=== PATIENT | female | born 1970 | race Caucasian/White ===

== ENCOUNTER 2016-04-20 10:13 | Emergency (ER) | payer MEDICAID, OTHER ==
[~2016-04-20] VITALS: Wt 63.0 kg
[~2016-04-20 10:13] MED LIST: ADVIL PRN; TYLENOL PRN
--- NOTE | 2016-04-20 11:06 | RADRPT ---
PROCEDURE: XR Chest. CLINICAL INDICATION: Chest pain TECHNIQUE: Chest AP portable. COMPARISON: 01/15/2016 FINDINGS: Right internal jugular Port-A-Cath. The mediastinal structures are unremarkable. The heart is normal in size and configuration. The pu lmonary vascularity is normal. There are RLL and LLL patchy consolidation/subsegmental atelectasis. There are moderate sized bilateral pleural effusions. The axial skeleton is unremarkable. IMPRESSION: RLL and LLL patchy consolidation/subsegmental atelectasis Moderate size bilateral pleural effusions RPTAT: HGDB .Marquise Mckay MD, MD Date Time Electronically viewed and signed by .Marquise Mckay MD, on 04/20/2016 11:06 .B/
[2016-04-20 11:10] LABS: BASOPHILS % 0.6 % (0.0-2.0); EOSINOPHILS # 0.1 10^3/ul (0.0-0.5); EOSINOPHILS % 1.3 % (0.0-7.0); HEMOGLOBIN 11.4 g/dl (12.0-16.0); LYMPHOCYTES # 0.8 10^3/ul (0.8-2.9); LYMPHOCYTES % 11.9 % (15.0-51.0); MEAN CORPUSCULAR HEMOGLOBIN 26.5 pg (29.0-33.0); MEAN CORPUSCULAR HGB CONC 32.5 g/dl (32.0-37.0); MEAN CORPUSCULAR VOLUME 81.5 fl (82.0-101.0); MONOCYTE # 0.7 10^3/ul (0.3-0.9); MONOCYTES % 10.2 % (0.0-11.0); NEUTROPHIL # 5.4 10^3/ul (1.6-7.5); PLATELET COUNT 416 10^3/UL (140-440); RED BLOOD COUNT 4.29 10^6/ul (4.20-5.40); RED CELL DISTRIBUTION WIDTH 19.1 % (11.5-14.5); UNCORRECTED WBC 7.1 10^3/ul (4.8-10.8); WHITE BLOOD COUNT 7.1 10^3/ul (4.8-10.8)
[2016-04-20 11:11] LABS: INR 0.96; PROTIME 12.8 Sec (12.2-14.2)
[2016-04-20 11:12] LABS: PARTIAL THROMBOPLASTIN TIME 33.2 Sec (25.0-35.0)
[2016-04-20 11:14] LABS: CONDITION 1; LH ANALYZER COMMENTS 1
[2016-04-20] MEDS ORDERED: AMIT50TA3 PO (11:18)
[2016-04-20 11:21] LABS: CHLORIDE 105 mmol/L (97-110); POTASSIUM 3.4 mmol/L (3.5-5.1); SODIUM 142 mmol/L (135-144)
[2016-04-20 11:24] LABS: ANION GAP 11 (8-16); BLOOD UREA NITROGEN 8 mg/dl (7-20); CARBON DIOXIDE 29 mmol/L (21-31); CREATININE 0.48 mg/dl (0.44-1.00)
[2016-04-20 11:25] LABS: CALCIUM 8.5 mg/dl (8.4-10.2); GLUCOSE 90 mg/dl (70-220)
[2016-04-20] MEDS ORDERED: CEFTRIAXONE 1 GM/50 ML (PMX) 50 ML IVPB STA (11:30)
[2016-04-20] MEDS ORDERED: AZITHROMYCIN 500MG/NS (PMX) 250 ML IV STA (11:30)
[2016-04-20 11:34] LABS: B-TYPE NATRIURETIC PEPTIDE 61 PG/ML (0-125)
[2016-04-20 11:40] LABS: TROPONIN-I < 0.012 ng/ml (0.00-0.12)
--- NOTE | 2016-04-20 12:24 | ERD ---
ER Documentation Chief Complaint Date/Time DATE: 04/20/16 TIME: 12:21 Chief Complaint SOB FOR 1 WEEK WITH HX OF PLEURAL EFFUSION, BREAST CA WITH CHEMO HPI This is a 45-year-old female who presents to the emergency room for evaluation of shortness of breath. The patient states that she has been short of breath for 1 week. She states is worse when she lays flat, she does have a history of breast cancer and is on chemotherapy. The patient denies any palpitations at this time or fevers and came to the ER for evaluation. She does have a history of pleural effusions. ROS All systems reviewed and are negative except as per history of present illness. Medications Home Meds Reported Medications Amitriptyline Hcl* (Amitriptyline Hcl*) 50 Mg Tablet, 50 MG PO QHS, #30 TAB 04/20/16 Discontinued Reported Medications [Advil Prn] No Conflict Check 01/15/16 [Tylenol Prn] No Conflict Check 01/15/16 Allergies Allergies: Coded Allergies: No Known Allergies (Verified Allergy, Unknown, 01/15/16) PMhx/Soc History of Surgery: Yes (LT BREAST,MADHU CATH PLACEMENT) Anesthesia Reaction: No Hx Neurological Disorder: No Hx Respiratory Disorders: No Hx Cardiac Disorders: No Hx Psychiatric Problems: No Hx Miscellaneous Medical Probl: Yes (LT BREAST CA) Hx Alcohol Use: No Hx Substance Use: No Hx Tobacco Use: No Smoking Status: Never smoker Physical Exam Vitals Vital Signs Date Time Temp Pulse Resp B/P Pulse Ox O2 Delivery O2 Flow Rate FiO2 04/20/16 10:50 Nasal Cannula 2 04/20/16 10:15 98.5 80 21 144/70 98 Physical Exam INITIAL VITAL SIGNS: Reviewed by me GENERAL: The patient is well developed and appropriate for usual state of health in no apparent distress HEENT: Pupils equal, round, and reactive to light. EOMI. There is no scleral icterus. NECK: C-spine is soft and supple, there is no meningismus. There is no cervical lymphadenopathy. LUNGS: Clear to auscultation bilaterally. There are no rales, wheezes or rhonchi. HEART: Regular rate and rhythm, no murmurs, clicks, rubs or gallops. ABDOMEN: Soft, non-tender, non-distended. There are bowel sounds in all four quadrants. No rebound or guarding. EXTREMITIES: There is no peripheral cyanosis or edema. No focal swelling or erythema. NEUROLOGICAL: The patient moves all four extremities with 5/5 strength. Cranial nerves II - XII are intact. Normal gait. Alert and oriented SKIN: There is no apparent rash or petechiae. HEME/LYMPHATIC: There is no evidence of excessive bruising or lymphedema. PSYCHIATRIC: The patient does not appear anxious or depressed. Result Diagram: 04/20/16 1050 04/20/16 1055 Results 24 hrs Laboratory Tests Test 04/20/16 10:50 04/20/16 10:55 04/20/16 11:30 Activated Partial Thromboplast Time 33.2Sec Basophils # 0.010^3/ul Basophils % 0.6% Blood Morphology Comment Eosinophils # 0.110^3/ul Eosinophils % 1.3% Hematocrit 35.0% Hemoglobin 11.4g/dl INR International Normalized Ratio 0.96 Lymphocytes # 0.810^3/ul Lymphocytes % 11.9% Mean Corpuscular Hemoglobin 26.5pg Mean Corpuscular Hemoglobin Concent 32.5g/dl Mean Corpuscular Volume 81.5fl Mean Platelet Volume 7.0fl Monocytes # 0.710^3/ul Monocytes % 10.2% Neutrophils # 5.410^3/ul Neutrophils % 76.0% Nucleated Red Blood Cells # 0.010^3/ul Nucleated Red Blood Cells % 0.0/100WBC Platelet Count 62047^3/UL Prothrombin Time 12.8Sec Prothrombin Time Ratio 1.0 Red Blood Count 4.2910^6/ul Red Cell Distribution Width 19.1% White Blood Count 7.110^3/ul Anion Gap 11 B-Type Natriuretic Peptide 61PG/ML Blood Urea Nitrogen 8mg/dl Calcium Level 8.5mg/dl Carbon Dioxide Level 29mmol/L Chloride Level 105mmol/L Creatinine 0.48mg/dl Glucose Level 90mg/dl Potassium Level 3.4mmol/L Sodium Level 142mmol/L Troponin I < 0.012ng/ml Lactic Acid Level 0.7mmol/L Current Medications Medications (Trade) Dose Ordered Sig/Marck Route PRN Reason Start Time Stop Time Status Last Admin Dose Admin Azithromycin 250 ml @ 250 mls/hr ONCE STAT IV 04/20/16 11:30 04/20/16 12:29 04/20/16 11:58 Ceftriaxone Sodium (Rocephin) 50 ml @ 100 mls/hr ONCE STAT IVPB 04/20/16 11:30 04/20/16 11:59 DC 04/20/16 11:54 Procedures/MDM Chest X-ray 1V Interpreted by me: Soft Tissue: Bilateral patchy infiltrations, moderate bilateral pleural effusions Bones: No acute abnormalities Mediastinum/Cardiac Silhouette/Lungs: [No acute abnormalities] EKG: Rate/Rhythm: [Normal Sinus Rhythm] QRS, ST, T-waves: [No changes consistent w/ acute ischemia] Impression: [No evidence of ischemia or arrhythmia] This 45-year-old female presents to the ER for evaluation of shortness of breath. The patient does have a history of breast cancer and previous pleural effusion. On today's chest x-ray there are new bilateral patchy infiltrates and moderate pleural effusion. I do feel that this patient is suffering from a superimposed pneumonia on top of her chronic pleural effusions. She has not hypoxic, not tachycardic, hemodynamically stable. She did have lab work drawn which was normal, and she is not neutropenic. This patient did have blood cultures and lactic acid drawn. She was given Rocephin and azithromycin here in the emergency room and will be discharged home with a prescription for Levaquin. I advised her to return to the ER for shortness of breath worsens and she verbalized understanding. Pulse ox 100% on room air at this time Departure Diagnosis: Primary Impression: Bilateral pneumonia Additional Impressions: Microcytic anemia Bilateral pleural effusion Condition: Stable TIM VARGAS DO Apr 20, 2016 12:24
[2016-04-20] MEDS ORDERED: LEVO750T25 PO (12:26)
[2016-04-20 13:22] VITALS: BP 123/78; PULSE 78; RESP 20
== END 2016-04-20 13:26 | disposition home or self-care (01) ==
LOC: E/R 10:13
DX: J18.9 Pneumonia, unspecified organism (principal); R40.2252 Coma scale, best verbal response, oriented, at arrival to emergency department; D50.9 Iron deficiency anemia, unspecified; J90 Pleural effusion, not elsewhere classified; R40.2362 Coma scale, best motor response, obeys commands, at arrival to emergency department; R40.2142 Coma scale, eyes open, spontaneous, at arrival to emergency department; Z85.3 Personal history of malignant neoplasm of breast
CPT/HCPCS: 71010; 80048; 83605; 83880; 84484; 85025; 85610; 85730; 87040; J0456; J0696; 36415; 93005; 96374; 96375

== ENCOUNTER 2016-05-09 18:39 | Inpatient (IN) | payer OTHER ==
[~2016-05-09] VITALS: Ht 154.9 cm; Wt 62.0 kg
[~2016-05-09 18:39] MED LIST changes: -ADVIL PRN; +AMIT50TA3 PO; +LEVO750T25 PO; -TYLENOL PRN
[2016-05-09] MEDS ORDERED: SOD CHLORIDE 0.9% 500 ML IV STA (23:08)
[2016-05-09] MEDS ORDERED: LEVALBUTEROL (NEB) 1.25 MG/0.5 ML AMP INH STA (23:08)
[2016-05-09] MEDS ORDERED: IPRATROPIUM (NEB) 0.5 MG/2.5 ML AMP NEB STA (23:08)
--- NOTE | 2016-05-09 23:26 | ERD ---
ER Documentation Chief Complaint Date/Time DATE: 05/09/16 TIME: 23:13 Chief Complaint WORSENING COUGH FOR 3 WEEKS AND SOB HPI 45-year-old female presents here in emergency department for complaints of cough for 3 weeks now. Patient has been having on and off shortness of breath and wheezing. Patient was seen here 2 weeks ago, was diagnosed bilateral pneumonia, was sent home with Levaquin, patient finished a dose of antibiotics, but continues to have the symptoms and now worse. Patient has been having fever. Patient has been having evidence of shortness of breath. Patient just finished chemotherapy 03/30/2016 for breast cancer. ROS All systems reviewed and are negative except as per history of present illness. Medications Home Meds Active Scripts Levofloxacin* (Levaquin*) 750 Mg Tablet, 750 MG PO DAILY for 7 Days, TAB Prov:TIM VARGAS DO 04/20/16 Reported Medications Amitriptyline Hcl* (Amitriptyline Hcl*) 50 Mg Tablet, 50 MG PO QHS, #30 TAB 04/20/16 Allergies Allergies: Coded Allergies: No Known Allergies (Verified Allergy, Unknown, 01/15/16) PMhx/Soc History of Surgery: Yes (LT BREAST,MADHU CATH PLACEMENT) Anesthesia Reaction: No Hx Neurological Disorder: No Hx Respiratory Disorders: No Hx Cardiac Disorders: No Hx Psychiatric Problems: No Hx Miscellaneous Medical Probl: Yes (LT BREAST CA) Hx Alcohol Use: No Hx Substance Use: No Hx Tobacco Use: No FmHx Family History: diabetes Physical Exam Vitals Vital Signs Date Time Temp Pulse Resp B/P Pulse Ox O2 Delivery O2 Flow Rate FiO2 05/10/16 02:07 91 20 97 Nasal Cannula 2.0 05/10/16 00:39 103 28 94 21 05/09/16 18:57 100.7 109 20 128/79 92 Physical Exam GENERAL: The patient is well developed and appropriate for usual state of health, in no apparent distress. CHEST: Tightness noted on auscultation bilaterally. Slight wheezing noted with crackles noted in bilateral lungs. HEART: Regular rate and rhythm. No murmurs, clicks, rubs or gallops. No S3 or S4. ABDOMEN: Soft, nontender and nondistended. Good bowel sounds. No rebound or guarding. No gross peritonitis. No gross organomegaly or masses. No Mckinney sign or McBurney point tenderness. BACK: No midline or flank tenderness. EXTREMITIES: Equal pulses bilaterally. There is no peripheral clubbing, cyanosis or edema. No focal swelling or erythema. Full range of motion. Grossly neurovascularly intact. NEURO: Alert and oriented. Cranial nerves 2-12 intact. Motor strength in all 4 extremities with 5/5 strength. Sensation grossly intact. Normal speech and gait. SKIN: There is no apparent rash or petechia. The skin is warm and dry. HEMATOLOGIC AND LYMPHATIC: There is no evidence of excessive bruising or lymphedema. No gross cervical, axillary, or inguinal lymphadenopathy. Result Diagram: 05/10/16 0005 05/10/16 0005 Results 24 hrs Laboratory Tests Test 05/10/16 00:05 Alanine Aminotransferase (ALT/SGPT) 43IU/L Albumin 4.0g/dl Albumin/Globulin Ratio 1.29 Alkaline Phosphatase 161IU/L Anion Gap 15 Aspartate Amino Transf (AST/SGOT) 59IU/L Basophils # 0.010^3/ul Basophils % 0.3% Blood Morphology Comment Blood Urea Nitrogen 8mg/dl Calcium Level 8.8mg/dl Carbon Dioxide Level 28mmol/L Chloride Level 100mmol/L Creatinine 0.49mg/dl Direct Bilirubin 0.00mg/dl Eosinophils # 0.610^3/ul Eosinophils % 13.5% Globulin 3.10g/dl Glucose Level 101mg/dl Hematocrit 38.1% Hemoglobin 12.7g/dl Indirect Bilirubin 0.0mg/dl Lactic Acid Level 0.6mmol/L Lymphocytes # 0.610^3/ul Lymphocytes % 11.7% Mean Corpuscular Hemoglobin 27.4pg Mean Corpuscular Hemoglobin Concent 33.2g/dl Mean Corpuscular Volume 82.4fl Mean Platelet Volume 9.1fl Monocytes # 0.510^3/ul Monocytes % 10.3% Neutrophils # 3.010^3/ul Neutrophils % 64.2% Nucleated Red Blood Cells # 0.010^3/ul Nucleated Red Blood Cells % 0.0/100WBC Platelet Count 4410^3/UL Potassium Level 3.6mmol/L Red Blood Count 4.6310^6/ul Red Cell Distribution Width 19.0% Sodium Level 139mmol/L Total Bilirubin 0.0mg/dl Total Protein 7.1g/dl Troponin I < 0.012ng/ml White Blood Count 4.710^3/ul Current Medications Medications (Trade) Dose Ordered Sig/Marck Route PRN Reason Start Time Stop Time Status Last Admin Dose Admin Sodium Chloride (NS) 500 ml @ 500 mls/hr Q1H STAT IV 05/09/16 23:08 05/10/16 00:07 DC 05/09/16 23:08 Ipratropium Bricelyn (Atrovent 0.02% (Neb)) 0.5 mg ONCE STAT NEB 05/09/16 23:08 05/09/16 23:11 DC 05/10/16 00:35 Levalbuterol (Xopenex Neb) 5 mg ONCE STAT INH 05/09/16 23:08 05/09/16 23:11 DC 05/10/16 00:34 Acetaminophen (Tylenol Tab) 650 mg ONCE ONCE PO 05/09/16 23:30 05/09/16 23:31 DC 05/10/16 00:28 Ibuprofen (Motrin) 400 mg ONCE ONCE PO 05/09/16 23:30 05/09/16 23:31 DC 05/10/16 00:28 Ipratropium Bricelyn (Atrovent 0.02% (Neb)) 0.5 mg ONCE STAT NEB 05/10/16 01:51 05/10/16 01:52 DC 05/10/16 02:03 Levalbuterol (Xopenex Neb) 2.5 mg ONCE STAT INH 05/10/16 01:51 05/10/16 01:52 DC 05/10/16 02:01 Patient was given medicines for fever control here in the emergency department. After treatment, patient temperature improved and lower. Patient appears well and is hemodynamically stable. Breathing treatment of Xopenex and Atrovent was given here in emergency department, after treatment, patient's lungs sounds are clear and patient's oxygenation is better. Patient verbalized feeling much better.Normal saline IV bolus was given here in emergency department for rehydration, patient tolerated IV fluids. EKG was done, read by me and is normal sinus rhythm at a rate of 95, normal axis , there is no ST changes or changes in the EKG that indicates any cardiac emergencies at this time. Patient's EKG was also reviewed by Dr. Simental. Impression: no acute findings on EKG PROCEDURE: CHEST - 1 VIEW CLINICAL INDICATION: 45-year-old female with shortness of breath and asthma exacerbation. TECHNIQUE: A single frontal AP semi-erect view of the chest was performed portably. The images were reviewed on a PACS workstation. COMPARISON: Chest x-ray April 20, 2016. FINDINGS: There is a right-sided chest port again identified with the tip of the catheter in the distal superior vena cava. The cardiomediastinal silhouette is indistinct but without significant interval change. There is [id number] right and moderate left pleural effusions with associated compressive atelectasis. There is no evidence for congestive heart failure. There is no evidence for pneumothorax. Surgical clips are seen within the left axillary region from prior lymph node dissection. The osseous structures are intact. IMPRESSION: 1. Right-sided chest port. 2. Wbjk-[id number] right and moderate left pleural effusions with associated compressive atelectasis. A superimposed infiltrate cannot be excluded. 3. Surgical clips within the left axillary region from prior lymph node dissection. .Kenny Guadarrama MD, MD Date Time Electronically viewed and signed by .Kenny Guadarrama MD, MD on 05/10/2016 01:34 .M/ CC: MADDI KHANNA BOILER TESTER I discussed this case with my attending physician, Dr. Simental, patient will be transferred to ER 1 for further management and treatment, possible admission since patient failed outpatient treatment for pneumonia. Patient is able this time, will be transferred to ER 1, Dr. Simental will take over care. Procedures/MDM Medical Decision Making: Considering patient has been having symptoms of cough for 3 weeks, initially had diagnosed with pneumonia, this time, chest x-ray shows pleural effusion that cannot exclude infiltrates, patient has been having fever was tachycardic, also up AT 92% which improved to 94% upon being here in after breathing treatment, patient will be transferred to ER 1 for further evaluation and treatment, possible admission, I discussed this case with my attending physician, Dr. Simental, will take over care and facilitate patient's treatment and management. At this time, patient was transferred to ER 1 for further evaluation and treatment. Departure Diagnosis: Primary Impression: Cough Additional Impression: Pleural effusion Condition: Fair MADDI KHANNA NP May 09, 2016 23:25
[2016-05-09] MEDS ORDERED: ACETAMINOPHEN 325 MG TAB PO ONE (23:30)
[2016-05-09] MEDS ORDERED: IBUPROFEN 200 MG TAB PO ONE (23:30)
[2016-05-10 00:56] LABS: BASOPHILS % 0.3 % (0.0-2.0); EOSINOPHILS # 0.6 10^3/ul (0.0-0.5); EOSINOPHILS % 13.5 % (0.0-7.0); HEMATOCRIT 38.1 % (37.0-47.0); HEMOGLOBIN 12.7 g/dl (12.0-16.0); LYMPHOCYTES # 0.6 10^3/ul (0.8-2.9); LYMPHOCYTES % 11.7 % (15.0-51.0); MEAN CORPUSCULAR HEMOGLOBIN 27.4 pg (29.0-33.0); MEAN CORPUSCULAR HGB CONC 33.2 g/dl (32.0-37.0); MEAN CORPUSCULAR VOLUME 82.4 fl (82.0-101.0); MEAN PLATELET VOLUME 9.1 fl (7.4-10.4); MONOCYTE # 0.5 10^3/ul (0.3-0.9); MONOCYTES % 10.3 % (0.0-11.0); NEUTROPHILS % 64.2 % (39.0-77.0); PLATELET COUNT 44 10^3/UL (140-440); RED BLOOD COUNT 4.63 10^6/ul (4.20-5.40); UNCORRECTED WBC 4.7 10^3/ul (4.8-10.8); WHITE BLOOD COUNT 4.7 10^3/ul (4.8-10.8)
[2016-05-10 00:57] LABS: CONDITION 1; LH ANALYZER COMMENTS 1
[2016-05-10 01:09] LABS: CHLORIDE 100 mmol/L (97-110)
[2016-05-10 01:10] LABS: POTASSIUM 3.6 mmol/L (3.5-5.1); SODIUM 139 mmol/L (135-144)
[2016-05-10 01:12] LABS: ALANINE AMINOTRANSFERASE 43 IU/L (13-69); ALBUMIN/GLOBULIN RATIO 1.29; ALKALINE PHOSPHATASE 161 IU/L (42-121); ANION GAP 15 (8-16); ASPARTATE AMINO TRANSFERASE 59 IU/L (15-46); BLOOD UREA NITROGEN 8 mg/dl (7-20); CARBON DIOXIDE 28 mmol/L (21-31); CREATININE 0.49 mg/dl (0.44-1.00); TOTAL PROTEIN 7.1 g/dl (6.1-8.1)
[2016-05-10 01:13] LABS: CALCIUM 8.8 mg/dl (8.4-10.2); GLUCOSE 101 mg/dl (70-220)
[2016-05-10 01:25] LABS: TROPONIN-I < 0.012 ng/ml (0.00-0.12)
--- NOTE | 2016-05-10 01:34 | RADRPT ---
PROCEDURE: CHEST - 1 VIEW CLINICAL INDICATION: 45-year-old female with shortness of breath and asthma exacerbation. TECHNIQUE: A single frontal AP semi-erect view of the chest was performed portably. The images we re reviewed on a PACS workstation. COMPARISON: Chest x-ray April 20, 2016. FINDINGS: There is a right-sided chest port again identified with the tip of the catheter in the distal superi or vena cava. The cardiomediastinal silhouette is indistinct but without significant interval kan e. There is ypev-[id number] right and moderate left pleural effusions with associated compressive atelectasis. There is no evidence for congestive heart failure. There is no evidence for pneumothora x. Surgical clips are seen within the left axillary region from prior lymph node dissection. The os seous structures are intact. IMPRESSION: 1. Right-sided chest port. 2. Tzdb-hl-[id number] right and moderate left pleural effusions with associated compressive atelectas is. A superimposed infiltrate cannot be excluded. 3. Surgical clips within the left axillary region from prior lymph node dissection. .Kenny Guadarrama MD, MD Date Time Electronically viewed and signed by .Kenny Guadarrama MD, on 05/10/2016 01:34 .M/
[2016-05-10] MEDS ORDERED: LEVALBUTEROL (NEB) 1.25 MG/0.5 ML AMP INH STA (01:51)
[2016-05-10] MEDS ORDERED: IPRATROPIUM (NEB) 0.5 MG/2.5 ML AMP NEB STA (01:51)
[2016-05-10] MEDS ORDERED: morphine 4 MG/ML VIAL IV STA (02:59)
[2016-05-10] MEDS ORDERED: ONDANSETRON 4 MG INJ IV STA (02:59)
[2016-05-10] MEDS ORDERED: LORAZEPAM 2 MG INJ IV PRN (07:30)
[2016-05-10] MEDS ORDERED: LEVALBUTEROL (NEB) 0.63 MG/3 ML AMP HHN PRN (07:30)
[2016-05-10] MEDS ORDERED: ACETAMINOPHEN 325 MG TAB PO PRN (07:30)
[2016-05-10] MEDS ORDERED: VANCOMYCIN IV PER PHARMACY XX SCH (07:30)
--- NOTE | 2016-05-10 08:52 | HP ---
DATE OF ADMISSION: 05/09/2016 TIME SEEN: 4 a.m. CHIEF COMPLAINT: Shortness of breath and cough. HISTORY OF PRESENT ILLNESS: The patient is a 45-year-old female with a history of left breast carci noma status post radical mastectomy here in 2013 as well as history of chest wall abscess who presen hong to the emergency department with shortness of breath and cough. The symptoms have been going on for about 3 weeks and have been progressively getting worse. The patient was diagnosed with pneumo ermias about 3 weeks ago here in the ER and was discharged with antibiotics, but it seems like her symp toms have persisted and as such, she is here for evaluation. She reported subjective fever. Denied any nausea, vomiting, chest pain. It seems like the patient has completed her chemo on last month. Also of note, the patient underwent thoracentesis here about 4 months ago with removal of almost 1 .4 liters of serous fluid which was discarded. When patient presented to the ER today, her blood pressure was 120/79, heart rate 109, respiratory r ate 20, temp 100.7, oxygen saturation 92% on room air. Laboratory value shows a WBC of 4.7, platele t count 44. Hemoglobin was 4.7. AST 59, alkaline phosphatase 161. Otherwise, CBC and CMP are with in normal limits. Chest x-ray shows mild to moderate right and moderate left pleural effusion with associated compressive atelectasis. A superimposed infiltrate cannot be excluded. A chest x-ray 3 weeks ago here in the ER showed right lower lobe and left lower lobe patchy consolidation/subsegment al atelectasis with moderate-sized bilateral pleural effusion. REVIEW OF SYSTEMS: A 12-point review was performed and is negative except as mentioned in the HPI. PAST MEDICAL HISTORY: Left breast mastectomy, Port-A-Cath placement. SOCIAL HISTORY: Denied a history of tobacco, alcohol, or illicit drug use. ALLERGIES: NO KNOWN DRUG ALLERGIES. HOME MEDICATIONS: 1. Amitriptyline. 2. Recently started Levaquin. PHYSICAL EXAMINATION: VITAL SIGNS: Blood pressure 106/63 heart rate 99, respiratory rate 20, temperature 99, oxygen satur ation 100% on 3 L. GENERAL: No acute distress, cooperative. HEENT: No obvious head deformity. Pupils reactive to light. Extraocular muscles intact. CARDIOVASCULAR: Tachycardic with regular rhythm. CHEST: There are decreased breath sounds in bilateral lungs with scattered wheezing. There is a ri ght-sided Port-A-Cath in place. ABDOMEN: Soft, nontender, nondistended. Positive bowel sounds. EXTREMITIES: No edema. NEUROLOGIC: No focal deficits. LABORATORY: Pertinent positive results as mentioned in the HPI. IMAGING: Chest x-ray results as mentioned in the HPI. IMPRESSION: 1. Bilateral pneumonia. 2. Bilateral pleural effusion, infectious versus malignant. 3. Sepsis as evidenced by tachycardia and fever, secondary to pneumonia. 4. History of left breast cancer status post radical mastectomy and chemo. 5. Leukopenia and thrombocytopenia, likely chemo-induced. PLAN: She will be placed on broad-spectrum antibiotic. Will order ultrasound-guided thoracentesis. Note that the patient has a history of thoracentesis with removal of almost 1.4 liters and serous fluid 4 months ago. She will be placed on oxygen and will provide bronchodilators as needed for sym ptomatic relief. We will provide pain medication as needed. We will follow up on the culture resul ts. Will also follow up her platelets closely and transfuse as needed. Currently, there is no sign of active bleeding. Further workup and management per clinical course. Dictated By: DANIEL SINGLETON/NANO Conf#: [id number] DID#: [id number]
[2016-05-10] MEDS ORDERED: CEFEPIME 1GM/50 ML (PMX) 50 ML IVPB SCH (09:00)
[2016-05-10 09:27] LABS: BASOPHILS % 0.9 % (0.0-2.0); EOSINOPHILS # 0.2 10^3/ul (0.0-0.5); EOSINOPHILS % 5.5 % (0.0-7.0); HEMATOCRIT 35.3 % (37.0-47.0); HEMOGLOBIN 11.7 g/dl (12.0-16.0); LYMPHOCYTES # 0.4 10^3/ul (0.8-2.9); LYMPHOCYTES % 14.5 % (15.0-51.0); MEAN CORPUSCULAR HEMOGLOBIN 27.3 pg (29.0-33.0); MEAN CORPUSCULAR HGB CONC 33.1 g/dl (32.0-37.0); MEAN CORPUSCULAR VOLUME 82.5 fl (82.0-101.0); MEAN PLATELET VOLUME 9.5 fl (7.4-10.4); MONOCYTE # 0.3 10^3/ul (0.3-0.9); MONOCYTES % 12.3 % (0.0-11.0); NEUTROPHIL # 1.8 10^3/ul (1.6-7.5); NEUTROPHILS % 66.8 % (39.0-77.0); PLATELET COUNT 33 10^3/UL (140-440); RED BLOOD COUNT 4.28 10^6/ul (4.20-5.40); RED CELL DISTRIBUTION WIDTH 18.7 % (11.5-14.5); UNCORRECTED WBC 2.7 10^3/ul (4.8-10.8); WHITE BLOOD COUNT 2.7 10^3/ul (4.8-10.8)
[2016-05-10 09:29] LABS: ALBUMIN 3.3 g/dl (3.3-4.9)
[2016-05-10 09:30] LABS: POTASSIUM 3.5 mmol/L (3.5-5.1)
[2016-05-10 09:31] LABS: CREATININE 0.44 mg/dl (0.44-1.00)
[2016-05-10 09:32] LABS: ALBUMIN/GLOBULIN RATIO 1.37; CALCIUM 8.1 mg/dl (8.4-10.2); MAGNESIUM 1.9 mg/dl (1.7-2.5); TOTAL PROTEIN 5.7 g/dl (6.1-8.1)
[2016-05-10 09:34] LABS: CONDITION 1; LH ANALYZER COMMENTS 1
[2016-05-10] MEDS: VANCOMYCIN 1.25 GM in SOD CHLORIDE 0.9% 250 ML IVPB SCH ×2 (09:56→22:32)
[2016-05-10 10:31] LABS: PLATELET ESTIMATE PLT APPEAR DECREASED
[2016-05-10 12:00] VITALS: TEMP 98
--- NOTE | 2016-05-10 16:28 | PN ---
Date/Time of Note Date/Time of Note DATE: 05/10/16 TIME: 16:23 Assessment/Plan VTE Prophylaxis VTE Prophylaxis Intervention: SCD's Assessment/Plan Chief Complaint/Hosp Course Assessment and plan 1. Bilateral pneumonia. continue on abx. [place] follow. 2. Bilateral pleural effusion. Plan for thoracentesis. [place] follow. Suspect etiology malignant versus infectious. We'll follow-up 3. Sepsis secondary to #1. Afebrile at present. Continue antibiotics and antipyretics as needed 4. History of left breast cancer status post radical mastectomy and chemotherapy. Patient does report he follows up with oncologist Dr. Camacho as outpatient and is currently on chemotherapy. Patient be followed up as outpatient 5. Leukopenia and thrombycytopenia likely chemotherapy-induced. Stable at present we'll monitor Disposition and plan: Plan for thoracentesis. Await clinical improvement of respiratory status. Cook Pie follow. Discussed but of care with Dr. Pro Problems: Subjective 24 Hr Interval Summary Free Text/Dictation No reported chest pain at this time. Has some shortness of breath Exam/Review of Systems Vital Signs Vitals Vital Signs Date Time Temp Pulse Resp B/P Pulse Ox O2 Delivery O2 Flow Rate FiO2 05/10/16 09:00 74 100/59 100 Nasal Cannula 2.0 05/10/16 08:00 98.2 18 05/10/16 00:39 21 Exam General: [Reports of shortness of breath Eyes: pupils equal round, Anicteric sclera Neck: Supple nontender, no JVD Cardiac: S1, S2 auscultated, regular rhythm and rate Pulmonary: Diminished at lung bases GI: Abdomen soft nontender nondistended, bowel sounds active Extremities: No edema bilateral lower extremities Skin: Clean dry and intact Neurologic: Alert to person place and time and situation Results Result Diagram: 05/10/16 0850 05/10/16 0850 Results 24 hrs Laboratory Tests Test 05/10/16 00:05 05/10/16 08:50 Alanine Aminotransferase (ALT/SGPT) 43 43 Albumin 4.0 3.3 Albumin/Globulin Ratio 1.29 1.37 Alkaline Phosphatase 161 H 129 H Anion Gap 15 15 Aspartate Amino Transf (AST/SGOT) 59 H 38 Basophils # 0.0 0.0 Basophils % 0.3 0.9 Blood Morphology Comment Blood Urea Nitrogen 8 8 Calcium Level 8.8 8.1 L Carbon Dioxide Level 28 26 Chloride Level 100 103 Creatinine 0.49 0.44 Direct Bilirubin 0.00 0.00 Eosinophils # 0.6 H 0.2 Eosinophils % 13.5 H 5.5 Globulin 3.10 2.40 Glucose Level 101 94 Hematocrit 38.1 35.3 L Hemoglobin 12.7 11.7 L Indirect Bilirubin 0.0 0.0 Lactic Acid Level 0.6 Lymphocytes # 0.6 L 0.4 L Lymphocytes % 11.7 L 14.5 L Mean Corpuscular Hemoglobin 27.4 L 27.3 L Mean Corpuscular Hemoglobin Concent 33.2 33.1 Mean Corpuscular Volume 82.4 82.5 Mean Platelet Volume 9.1 # 9.5 Monocytes # 0.5 0.3 Monocytes % 10.3 12.3 H Neutrophils # 3.0 1.8 Neutrophils % 64.2 66.8 Nucleated Red Blood Cells # 0.0 0.0 Nucleated Red Blood Cells % 0.0 0.0 Platelet Count 44 #L 33 #L Potassium Level 3.6 3.5 Red Blood Count 4.63 4.28 Red Cell Distribution Width 19.0 H 18.7 H Sodium Level 139 140 Total Bilirubin 0.0 L 0.0 L Total Protein 7.1 5.7 #L Troponin I < 0.012 White Blood Count 4.7 #L 2.7 #L Differential Comment AUTO w/SCAN Magnesium Level 1.9 Platelet Estimate PLT APPEAR DECREASED Medications Medications Current Medications Lorazepam (Ativan) 0.5 mg Q6H PRN IV ANXIETY; Start 05/10/16 at 07:30 Ondansetron HCl (Zofran Inj) 4 mg Q6H PRN IV NAUSEA AND/OR VOMITING; Start at 07:30 Acetaminophen (Tylenol Tab) 650 mg Q6H PRN PO PAIN LEVEL 1-3 OR FEVER; Start at 07:30 Morphine Sulfate 2 mg 2 mg Q4H PRN IV PAIN LEVEL 7-10; Start 05/10/16 at 07:30 Cefepime HCl (Maxipime 1gm/50 ml (Pmx)) 50 ml @ 100 mls/hr Q12 IVPB Last administered on 05/10/16t 09:00; Admin Dose 100 MLS/HR; Start 05/10/16 at 09:00 Amitriptyline HCl 50 mg 50 mg QHS PO ; Start 05/10/16 at 21:00 Vancomycin HCl/ Sodium Chloride (Vancocin/NS) 250 ml @ 83.333 mls/ hr Q12H IVPB Last administered on 05/10/16t 09:56; Admin Dose 83.333 MLS/HR; Start at 09:00 AUTUMN VARELA May 10, 2016 16:28
[2016-05-10 17:20] VITALS: PULSE 102
[2016-05-10] MEDS: morphine 2 MG INJ IV PRN (18:05)
[2016-05-10 18:24] VITALS: Ht 154.9 cm; Wt 62.0 kg
[2016-05-10 20:00] VITALS: BP 145/73; RESP 17
[2016-05-10 20:18] VITALS: PULSE 105
[2016-05-10] MEDS ORDERED: AMITRIPTYLINE 50 MG TAB PO SCH (21:00)
[2016-05-10] MEDS: AMITRIPTYLINE 25 MG TAB PO SCH (22:32)
[2016-05-10] MEDS: NACL 0.9% 3 ML SYG IV SCH (23:13)
[2016-05-11] VITALS (12 sets, daily range): BP systolic 102–127; BP diastolic 57–78; PULSE 73–109; RESP 17
[2016-05-11 07:25] LABS: BASOPHILS % 0.2 % (0.0-2.0); EOSINOPHILS # 0.2 10^3/ul (0.0-0.5); HEMATOCRIT 34.7 % (37.0-47.0); HEMOGLOBIN 11.6 g/dl (12.0-16.0); LYMPHOCYTES # 0.5 10^3/ul (0.8-2.9); LYMPHOCYTES % 13.4 % (15.0-51.0); MEAN CORPUSCULAR HEMOGLOBIN 27.6 pg (29.0-33.0); MEAN CORPUSCULAR HGB CONC 33.4 g/dl (32.0-37.0); MEAN CORPUSCULAR VOLUME 82.6 fl (82.0-101.0); MEAN PLATELET VOLUME 8.3 fl (7.4-10.4); MONOCYTE # 0.4 10^3/ul (0.3-0.9); MONOCYTES % 9.7 % (0.0-11.0); NEUTROPHIL # 2.6 10^3/ul (1.6-7.5); NEUTROPHILS % 70.7 % (39.0-77.0); PLATELET COUNT 50 10^3/UL (140-440); UNCORRECTED WBC 3.7 10^3/ul (4.8-10.8); WHITE BLOOD COUNT 3.7 10^3/ul (4.8-10.8)
[2016-05-11 07:30] LABS: CONDITION 1; LH ANALYZER COMMENTS 1
[2016-05-11 07:39] LABS: INR 1.06; PROTIME 13.8 Sec (12.2-14.2); PT RATIO 1.1
[2016-05-11 07:40] LABS: POTASSIUM 3.5 mmol/L (3.5-5.1)
[2016-05-11 07:42] LABS: CREATININE 0.45 mg/dl (0.44-1.00)
[2016-05-11 07:43] LABS: CALCIUM 7.9 mg/dl (8.4-10.2); MAGNESIUM 1.8 mg/dl (1.7-2.5); PHOSPHORUS 3.4 mg/dl (2.5-4.9)
[2016-05-11] MEDS: VANCOMYCIN 1.25 GM in SOD CHLORIDE 0.9% 250 ML IVPB SCH ×2 (10:57→20:47)
[2016-05-11] MEDS: morphine 2 MG INJ IV PRN (10:58)
--- NOTE | 2016-05-11 11:52 | HP ---
DATE OF ADMISSION: 05/10/2016 SUBJECTIVE: The patient remains stable this morning. No evidence of respiratory distress . Thank you, Dr. Ugalde, for this consultation. This is a 45-year-old lady with history of breast cancer with history of mastectomy, complicated by a breast wall abscess, presents with 3-week history of i ncreasing cough, congestion. Denies any fever or chills, was diagnosed with pneumonia 3 weeks ago a nd treated with outpatient antibiotics. On admission today she was febrile to 100.7. No leukocytosi s. Chest x-ray did show moderate left pleural effusion. She has a history of pleural effusion requ iring thoracentesis performed here in December of last year where she had 1.37 liters removed from th e left pleural space. PAST MEDICAL HISTORY: 1. Metastatic advanced breast cancer. 2. History of mastectomy. 3. Ongoing chemotherapy. MEDICATIONS: Include amitriptyline. ALLERGIES: NONE. SOCIAL HISTORY: Nonsmoker, no alcohol, no history of drug use. FAMILY HISTORY: Noncontributory. REVIEW OF SYSTEMS: A 12 point review of systems negative other than that mentioned above. PHYSICAL EXAMINATION: GENERAL: Elderly-appearing lady, appears comfortable at rest, no acute distress. VITAL SIGNS: Temperature 98, pulse is 85, blood pressure 102/57, O2 saturation 96% on 2 L nasal can nula. NECK: Supple. No JVD or lymphadenopathy. CARDIAC: S1, S2, no added sounds or murmurs. CHEST: Diminished air entry bilaterally. ABDOMEN: Soft, nontender. No guarding or rebound. EXTREMITIES: No cyanosis, clubbing, or edema. NEUROLOGIC: Generalized weakness, but no focal deficits. LABORATORY DATA: White count 3.7, hemoglobin 11.6, platelets of 50. BUN 6, creatinine 0.45. INR w as 1.06. IMPRESSION AND PLAN: 1. Pleural effusions, likely secondary to metastatic breast cancer. 2. Hypoxemic respiratory failure secondary to above. The patient will require: 1. Thoracentesis of left pleural effusion with pleural fluid studies. 2. If increasing frequency of thoracentesis patient may ultimately require a pleurocentesis and/or PleurX catheter. Dictated By: VANESSA SUE/NANO Conf#: [id number] DID#: [id number]
[2016-05-11] MEDS ORDERED: LIDOCAINE 1% (MPF) 5 ML VIAL ONE (12:57)
--- NOTE | 2016-05-11 13:03 | RADRPT ---
PROCEDURE: US guided left thoracentesis. CLINICAL INDICATION: Shortness of breath. Left pleural effusion. TECHNIQUE: Prior to the procedure, informed consent was obtained. The risks, benefits, and alternatives were e xplained to the patient or the patient's family, including but not limited to bleeding, infection, p ain, visceral or vascular damage, shock, pneumothorax, chest tube placement, air embolism, and . The patient or the patient's family understood the risks and the alternatives and wished to proce ed with the study. Informed written consent was obtained. A procedural pause was performed. The patient's name, date of , and procedure to be performed were verified. Ultrasound of the left hemithorax was performed in the axial and sagittal planes. A left pleural eff usion is noted. Utilizing ultrasound guidance, optimal location for entry to the pleural cavity was ascertained. The overlying skin was prepped and draped in the usual sterile fashion. Approximately 10 ml of 1% Xylocaine was injected locally for pain control. Using ultrasound guidance, a 5-[place] Yueh catheter was introduced into the left pleural space without difficulty. Fluid was aspirated. COMPARISON: None. FINDINGS: Initial ultrasound demonstrates fluid in the left pleural space. Approximately 1.3 liters of serous fluid was aspirated and sent to the laboratory. IMPRESSION: 1. Satisfactory ultrasound-guided left thoracentesis. RPTAT: QQ .Marcus Adan MD, MD Date Time Electronically viewed and signed by .Marcus Adan MD, on 05/11/2016 13:02 .R/
--- NOTE | 2016-05-11 13:29 | RADRPT ---
AMENDMENT: 05/11/2016 1:39:18 PM Sg Maddox M.D Results were discussed with the patients nurse Marily Limb 05/11/2016 1:33:48 PM . PROCEDURE: XR Chest. CLINICAL INDICATION: Pleural effusion status post left thoracentesis. TECHNIQUE: Single AP portable chest COMPARISON: 05/09/2016 FINDINGS: Cardiomegaly and vascular congestion. Stable right MediPort catheter in place. Persistent large rig ht pleural effusion. Decreased left pleural effusion status post thoracentesis. Approximately 10% left lower lobe pneumothorax with persistent trace left pleural effusion. This may represent trappe d lung. . The osseous structures and soft tissues are unremarkable. IMPRESSION: 1. Approximately .10% left lower lobe pneumothorax status post thoracentesis. This may represent tr apped lung. Continued follow-up is recommended. 2. Persistent large right pleural effusion, cardiomegaly and vascular congestion. RPTAT:AAJJ Physician Jameson Date Time Electronically viewed and signed by Physician Jameson on 05/11/2016 13:40 SHERI/
[2016-05-11 14:28] LABS: FLUID APPEARANCE CLEAR; FLUID TYPE THORACENTHESIS; FLUID WBC'S 240 /cmm
[2016-05-11 14:29] LABS: FLUID LYMPHOCYTES 72 %; FLUID MONOCYTES 25 %; FLUID NEUTROPHILS 3 %
--- NOTE | 2016-05-11 15:52 | PN ---
Date/Time of Note Date/Time of Note DATE: 05/11/16 TIME: 15:50 Assessment/Plan VTE Prophylaxis VTE Prophylaxis Intervention: SCD's Lines/Catheters IV [facility] Type (from [facility]): Peripheral IV Assessment/Plan Chief Complaint/Hosp Course Assessment and plan 1. Bilateral pneumonia. continue on abx. Sales Facilitator follow. 2. biLateral pleural effusion. Status post thoracentesis. Sales Facilitator follow. Suspect etiology malignant versus infectious. Follow-up pleural fluid cytology 3. Sepsis secondary to #1. Afebrile at present. Continue antibiotics and antipyretics as needed 4. History of left breast cancer status post radical mastectomy and chemotherapy. Patient does report he follows up with oncologist Dr. Camacho as outpatient and is currently on chemotherapy. Patient to be followed up as outpatient 5. Leukopenia and thrombycytopenia likely chemotherapy-induced. Stable at present we'll monitor Disposition and plan: Patient status post thoracentesis. Follow-up with pulmonology recommendations per follow-up on fluid cytology. Discharge him medically stable and cleared by consultants Discussed but of care with Dr. Pro Problems: Subjective 24 Hr Interval Summary Free Text/Dictation No apparent distress. Exam/Review of Systems Vital Signs Vitals Vital Signs Date Time Temp Pulse Resp B/P Pulse Ox O2 Delivery O2 Flow Rate FiO2 05/11/16 13:11 2.0 05/11/16 12:23 86 05/11/16 12:04 97.9 17 127/63 97 05/11/16 07:45 Nasal Cannula 05/10/16 00:39 21 Intake and Output 05/10/16 05/10/16 05/11/16 14:59 22:59 06:59 Intake Total 700 ml Balance 700 ml Exam General: [Reports of shortness of breath Eyes: pupils equal round, Anicteric sclera Neck: Supple nontender, no JVD Cardiac: S1, S2 auscultated, regular rhythm and rate Pulmonary: Diminished at lung bases GI: Abdomen soft nontender nondistended, bowel sounds active Extremities: No edema bilateral lower extremities Skin: Clean dry and intact Neurologic: Alert to person place and time and situation Results Result Diagram: 05/11/16 0602 05/11/16 0602 Results 24 hrs Laboratory Tests Test 05/11/16 06:02 05/11/16 12:40 Anion Gap 15 Basophils # 0.0 Basophils % 0.2 Blood Morphology Comment Blood Urea Nitrogen 6 L Calcium Level 7.9 L Carbon Dioxide Level 25 Chloride Level 101 Creatinine 0.45 Eosinophils # 0.2 Eosinophils % 6.0 Glucose Level 84 Hematocrit 34.7 L Hemoglobin 11.6 L INR International Normalized Ratio 1.06 Lymphocytes # 0.5 L Lymphocytes % 13.4 L Magnesium Level 1.8 Mean Corpuscular Hemoglobin 27.6 L Mean Corpuscular Hemoglobin Concent 33.4 Mean Corpuscular Volume 82.6 Mean Platelet Volume 8.3 Monocytes # 0.4 Monocytes % 9.7 Neutrophils # 2.6 Neutrophils % 70.7 Nucleated Red Blood Cells # 0.0 Nucleated Red Blood Cells % 0.0 Phosphorus Level 3.4 Platelet Count 50 #L Potassium Level 3.5 Prothrombin Time 13.8 Prothrombin Time Ratio 1.1 Red Blood Count 4.20 Red Cell Distribution Width 19.0 H Sodium Level 137 White Blood Count 3.7 #L Body Fluid Appearance CLEAR Body Fluid Color YELLOW Body Fluid Lymphocytes (%) 72 Body Fluid Monocytes % 25 Body Fluid Neutrophils % 3 Body Fluid RBC Body Fluid Type THORACENTHESIS Body Fluid Volume 800.0 Body Fluid WBC 240 Medications Medications Current Medications Lorazepam (Ativan) 0.5 mg Q6H PRN IV ANXIETY; Start 05/10/16 at 07:30 Ondansetron HCl (Zofran Inj) 4 mg Q6H PRN IV NAUSEA AND/OR VOMITING; Start at 07:30 Acetaminophen (Tylenol Tab) 650 mg Q6H PRN PO PAIN LEVEL 1-3 OR FEVER; Start at 07:30 Morphine Sulfate 2 mg 2 mg Q4H PRN IV PAIN LEVEL 7-10 Last administered on 05/11 10:58; Admin Dose 2 MG; Start 05/10/16 at 07:30 Cefepime HCl 50 ml @ 100 mls/hr Q12 IVPB Last administered on 05/10/16 09:00 ; Admin Dose 100 MLS/HR; Start 05/10/16 at 09:00; Status Future Hold Vancomycin HCl/ Sodium Chloride (Vancocin/NS) 250 ml @ 83.333 mls/ hr Q12H IVPB Last administered on 05/11/16 10:57; Admin Dose 83.333 MLS/HR; Start at 09:00 Amitriptyline HCl (Elavil) 50 mg QHS PO Last administered on 05/10/16t 22:32; Admin Dose 50 MG; Start 05/10/16 at 21:00 AUTUMN VARELA May 11, 2016 15:52
[2016-05-11 16:58] LABS: FLUID GLUCOSE 103 mg/dl; FLUID LD 251 U/L; FLUID TOTAL PROTEIN 4.7 g/dl; FLUID TYPE THORACENTESIS FLUID
[2016-05-11] MEDS: AMITRIPTYLINE 25 MG TAB PO SCH (20:47)
[2016-05-12] VITALS (12 sets, daily range): BP systolic 98–114; BP diastolic 55–75; PULSE 75–92; RESP 13–18
--- NOTE | 2016-05-12 09:06 | RADRPT ---
PROCEDURE: XR Chest. CLINICAL INDICATION: Pneumonia, CHF TECHNIQUE: An AP view of the chest was obtained. COMPARISON: Chest x-ray dated 05/11/2016 FINDINGS: There is a right chest Port-A-Cath with tip in the mid SVC. There is prominence of the central pulmonary vascular markings with moderate right and small left pl eural effusions. Is a persistent small left inferolateral pneumothorax. The cardiomediastinal jerry houette is the normal limits for size. The osseous structures are unremarkable. IMPRESSION: 1. Stable, small left inferolateral pneumothorax. 2. Findings suggestive of pulmonary vascular congestion with moderate right and small left pleural effusions. No significant interval change. RPTAT: HH .Dacia Garay MD, MD Date Time Electronically viewed and signed by .Dacia Garay MD, MD on 05/12/2016 09:06 .G/
[2016-05-12] MEDS: morphine 2 MG INJ IV PRN (09:22)
[2016-05-12] MEDS: ONDANSETRON 4 MG INJ IV PRN (09:22)
[2016-05-12] MEDS: VANCOMYCIN 1.25 GM in SOD CHLORIDE 0.9% 250 ML IVPB SCH ×3 (09:22→20:57)
--- NOTE | 2016-05-12 12:13 | PN ---
DATE: SUBJECTIVE: The patient is stable this morning, sitting up in bed in no acute distress. PHYSICAL EXAMINATION: VITAL SIGNS: Temperature 98, pulse 70, blood pressure 106/55, O2 saturation 96% on FIO2 of 2 L nasa l cannula. NECK: Supple. No JVD or lymphadenopathy. CARDIAC: S1, S2, no added sounds or murmurs. CHEST: Diminished air entry bilaterally. ABDOMEN: Soft, nontender. No guarding or rebound. EXTREMITIES: No cyanosis, clubbing, edema. NEUROLOGIC: Grossly intact. No focal deficits. LABORATORY DATA: Pleural fluid showed exudative effusion with a total protein of 4.7. Cytology is pending at time of this dictation. IMAGING: Post thoracentesis, chest x-ray shows small inferolateral pneumothorax. IMPRESSION AND PLAN: 1. Metastatic breast cancer. 2. Recurrent pleural effusion concerning for malignancy. 3. Status post thoracentesis, left lung with residual pneumothorax. Patient will require: 1. Continued supplemental O2. 2. Serial chest x-rays to ensure resolution of pneumothorax. Once this has been resolved, consider discharge planning and oncology recommendations. Dictated By: VANESSA SUE/NANO Conf#: [id number] DID#: [id number]
[2016-05-12] MEDS: FUROSEMIDE 40 MG INJ IV SCH ×2 (12:55→17:55)
--- NOTE | 2016-05-12 14:42 | PN ---
Date/Time of Note Date/Time of Note DATE: 05/12/16 TIME: 14:37 Assessment/Plan VTE Prophylaxis VTE Prophylaxis Intervention: SCD's Lines/Catheters IV [facility] Type ([facility]): Peripheral IV Assessment/Plan Chief Complaint/Hosp Course Assessment and plan 1. Bilateral pneumonia. continue on abx. Patient Centered Care Specialist follow. 2. BiLateral pleural effusion. Status post thoracentesis. Patient Centered Care Specialist follow. Suspect etiology malignant versus infectious. Follow-up pleural fluid cytology 3. Sepsis secondary to #1. Afebrile at present. Continue antibiotics and antipyretics as needed 4. History of left breast cancer status post radical mastectomy and chemotherapy. Patient does report she follows up with oncologist Dr. Camacho as outpatient and is currently on chemotherapy. Patient to be followed up as outpatient 5. Leukopenia and thrombycytopenia likely chemotherapy-induced. Stable at present we'll monitor Disposition and plan: Check follow up chest radiograph. Monitor for reaccumulation of fluid. cont diuretics. Monitor for resolution of pneumothorax. d/c when cleared by consultants Discussed but of care with Dr. Marcum Problems: Subjective 24 Hr Interval Summary Free Text/Dictation Does report little better breathing at this time Exam/Review of Systems Vital Signs Vitals Vital Signs Date Time Temp Pulse Resp B/P Pulse Ox O2 Delivery O2 Flow Rate FiO2 05/12/16 12:34 98.1 62 14 101/58 96 05/12/16 09:45 Nasal Cannula 2.0 05/10/16 00:39 21 Intake and Output 05/11/16 05/11/16 05/12/16 15:00 23:00 07:00 Intake Total 700 ml 200 ml Balance 700 ml 200 ml Exam General: Comfortable at this time. No apparent distress Eyes: pupils equal round, Anicteric sclera Neck: Supple nontender, no JVD Cardiac: S1, S2 auscultated, regular rhythm and rate Pulmonary: No obvious wheezing or rhonchi GI: Abdomen soft nontender nondistended, bowel sounds active Extremities: No edema bilateral lower extremities Skin: Clean dry and intact Neurologic: Alert to person place and time and situation Results Result Diagram: 05/11/16 0602 05/11/16 0602 Results 24 hrs Laboratory Tests Test 05/12/16 08:17 Vancomycin Level Trough 14.7 Medications Medications Current Medications Lorazepam (Ativan) 0.5 mg Q6H PRN IV ANXIETY; Start 05/10/16 at 07:30 Ondansetron HCl (Zofran Inj) 4 mg Q6H PRN IV NAUSEA AND/OR VOMITING Last administered on 05/12/16 09:22; Admin Dose 4 MG; Start 05/10/16 at 07:30 Acetaminophen (Tylenol Tab) 650 mg Q6H PRN PO PAIN LEVEL 1-3 OR FEVER; Start at 07:30 Morphine Sulfate 2 mg 2 mg Q4H PRN IV PAIN LEVEL 7-10 Last administered on 05/12 09:22; Admin Dose 2 MG; Start 05/10/16 at 07:30 Cefepime HCl 50 ml @ 100 mls/hr Q12 IVPB Last administered on 05/10/16 09:00 ; Admin Dose 100 MLS/HR; Start 05/10/16 at 09:00; Status Future Hold Vancomycin HCl/ Sodium Chloride (Vancocin/NS) 250 ml @ 83.333 mls/ hr Q12H IVPB Last administered on 05/12/16 09:34; Admin Dose 83.333 MLS/HR; Start at 09:00 Amitriptyline HCl (Elavil) 50 mg QHS PO Last administered on 05/11/16 20:47; Admin Dose 50 MG; Start 05/10/16 at 21:00 AUTUMN VARELA May 12, 2016 14:42
[2016-05-12] MEDS: AMITRIPTYLINE 25 MG TAB PO SCH (20:57)
[2016-05-13] VITALS (13 sets, daily range): BP systolic 102–129; BP diastolic 55–76; PULSE 72–110; RESP 15–20
[2016-05-13] MEDS: FUROSEMIDE 40 MG INJ IV SCH ×2 (06:08→17:50)
[2016-05-13 08:03] LABS: POTASSIUM 3.1 mmol/L (3.5-5.1)
[2016-05-13 08:05] LABS: CREATININE 0.46 mg/dl (0.44-1.00)
[2016-05-13 08:06] LABS: CALCIUM 7.7 mg/dl (8.4-10.2); MAGNESIUM 1.8 mg/dl (1.7-2.5); PHOSPHORUS 3.8 mg/dl (2.5-4.9)
[2016-05-13 08:08] LABS: BASOPHILS % 0.5 % (0.0-2.0); EOSINOPHILS # 0.5 10^3/ul (0.0-0.5); EOSINOPHILS % 10.7 % (0.0-7.0); HEMATOCRIT 36.8 % (37.0-47.0); HEMOGLOBIN 12.3 g/dl (12.0-16.0); LYMPHOCYTES # 0.9 10^3/ul (0.8-2.9); LYMPHOCYTES % 19.9 % (15.0-51.0); MEAN CORPUSCULAR HEMOGLOBIN 27.4 pg (29.0-33.0); MEAN CORPUSCULAR HGB CONC 33.5 g/dl (32.0-37.0); MEAN CORPUSCULAR VOLUME 81.9 fl (82.0-101.0); MEAN PLATELET VOLUME 8.7 fl (7.4-10.4); MONOCYTE # 0.5 10^3/ul (0.3-0.9); MONOCYTES % 10.6 % (0.0-11.0); NEUTROPHIL # 2.6 10^3/ul (1.6-7.5); NEUTROPHILS % 58.3 % (39.0-77.0); PLATELET COUNT 105 10^3/UL (140-440); RED BLOOD COUNT 4.49 10^6/ul (4.20-5.40); RED CELL DISTRIBUTION WIDTH 18.9 % (11.5-14.5); UNCORRECTED WBC 4.5 10^3/ul (4.8-10.8); WHITE BLOOD COUNT 4.5 10^3/ul (4.8-10.8)
[2016-05-13 08:23] LABS: CONDITION 1; LH ANALYZER COMMENTS 1
--- NOTE | 2016-05-13 08:32 | RADRPT ---
PROCEDURE: XR Chest. CLINICAL INDICATION: Pneumonia/cough/congestive heart failure TECHNIQUE: Chest AP portable. COMPARISON: 03/11/2017 FINDINGS: Right internal jugular Port-A-Cath. The mediastinal structures are unremarkable. The heart is normal in size and configuration. The pu lmonary vascularity is normal. There is a RLL and LLL patchy consolidation/subsegmental atelectasis . There are small bilateral pleural effusions. There is no change in the small left inferior later al pneumothorax. The axial skeleton is unremarkable. IMPRESSION: RLL and LLL patchy consolidation/subsegmental atelectasis Small bilateral pleural effusions No change in small left inferior lateral pneumothorax RPTAT: HGDB .Marquise Mckay MD, MD Date Time Electronically viewed and signed by .Marquise Mckay MD, on 05/13/2016 08:32 .B/
[2016-05-13] MEDS: VANCOMYCIN 1.25 GM in SOD CHLORIDE 0.9% 250 ML IVPB SCH (09:46)
--- NOTE | 2016-05-13 12:00 | CONS ---
Date/Time of Note Date/Time of Note DATE: 05/13/16 TIME: 11:55 Assessment/Plan Assessment/Plan Additional Assessment/Plan Chest x-ray was reviewed from today which is showing bilateral pleural effusions. However significantly improved after undergoing left-sided thoracentesis. Assessment and recommendations; 1. patient admitted with recurrent pleural effusions. Status post left thoracentesis. This is her third thoracentesis the first 1 was in September of last year and in January and now. 2. Metastatic breast cancer. 3. Findings are unlikely from pneumonia. Patient currently undergoing chemotherapy. May need to have VATS procedure done with chemical pleurodesis, provided that pleural fluid cytology is negative for malignancy and there is not any significant pleural involvement from malignancy. Patient will need to have a CT scan of chest done without contrast. Consider stopping antibiotics. Consultation Date/Type/Reason Admit Date/Time May 10, 2016 at 02:56 Initial Consult Date Type of Consultation: Pulmonary 24 HR Interval Summary Free Text/Dictation Patient condition is stable. Shortness of breath is significantly improved after undergoing left sided thoracentesis. Complains of scant cough without any sputum production. Denies any chest pain, nausea, vomiting. General examination; young woman currently in no distress awake and alert. Exam/Review of Systems Vital Signs Vitals Vital Signs Date Time Temp Pulse Resp B/P Pulse Ox O2 Delivery O2 Flow Rate FiO2 05/13/16 11:51 98.0 81 17 102/55 98 05/13/16 09:25 Nasal Cannula 3.0 05/10/16 00:39 21 Intake and Output 05/12/16 05/12/16 05/13/16 15:00 23:00 07:00 Intake Total 1040 ml 100 ml Output Total 0 ml Balance 1040 ml 100 ml Exam HEENT examination; supple neck, no JVD. No lymphadenopathy. Pharynx is clear. Good dentition. No neck masses. Chest examination; diminished breath on lung bases bilaterally. Upper lobes are clear. S1-S2 audible, no murmurs regular rhythm. Abdomen examination; soft, nontender nondistended no organomegaly bowel sounds audible . Extremities; no peripheral edema. CLINICAL EVALUATOR examination; no focal deficit. Results Result Diagram: 05/13/16 0645 05/13/16 0645 Results 24 hrs Laboratory Tests Test 05/13/16 06:45 Anion Gap 13 Basophils # 0.0 Basophils % 0.5 Blood Morphology Comment Blood Urea Nitrogen 6 L Calcium Level 7.7 L Carbon Dioxide Level 30 Chloride Level 98 Creatinine 0.46 Eosinophils # 0.5 Eosinophils % 10.7 H Glucose Level 95 Hematocrit 36.8 L Hemoglobin 12.3 Lymphocytes # 0.9 Lymphocytes % 19.9 Magnesium Level 1.8 Mean Corpuscular Hemoglobin 27.4 L Mean Corpuscular Hemoglobin Concent 33.5 Mean Corpuscular Volume 81.9 L Mean Platelet Volume 8.7 Monocytes # 0.5 Monocytes % 10.6 Neutrophils # 2.6 Neutrophils % 58.3 Nucleated Red Blood Cells # 0.0 Nucleated Red Blood Cells % 0.0 Phosphorus Level 3.8 Platelet Count 105 #L Potassium Level 3.1 L Red Blood Count 4.49 Red Cell Distribution Width 18.9 H Sodium Level 138 White Blood Count 4.5 #L Medications Medications Current Medications Lorazepam (Ativan) 0.5 mg Q6H PRN IV ANXIETY; Start 05/10/16 at 07:30 Ondansetron HCl (Zofran Inj) 4 mg Q6H PRN IV NAUSEA AND/OR VOMITING Last administered on 05/12/16 09:22; Admin Dose 4 MG; Start 05/10/16 at 07:30 Acetaminophen (Tylenol Tab) 650 mg Q6H PRN PO PAIN LEVEL 1-3 OR FEVER; Start at 07:30 Morphine Sulfate 2 mg 2 mg Q4H PRN IV PAIN LEVEL 7-10 Last administered on 05/12 09:22; Admin Dose 2 MG; Start 05/10/16 at 07:30 Cefepime HCl 50 ml @ 100 mls/hr Q12 IVPB Last administered on 05/10/16 09:00 ; Admin Dose 100 MLS/HR; Start 05/10/16 at 09:00; Status Future Hold Vancomycin HCl/ Sodium Chloride (Vancocin/NS) 250 ml @ 83.333 mls/ hr Q12H IVPB Last administered on 05/13/16 09:46; Admin Dose 83.333 MLS/HR; Start at 09:00 Amitriptyline HCl (Elavil) 50 mg QHS PO Last administered on 05/12/16 20:57; Admin Dose 50 MG; Start 05/10/16 at 21:00 LEI HORTA 17, 2017 12:00
--- NOTE | 2016-05-13 16:18 | PN ---
Date/Time of Note Date/Time of Note DATE: 05/13/16 TIME: 16:16 Assessment/Plan VTE Prophylaxis VTE Prophylaxis Intervention: SCD's Lines/Catheters IV Catheter Type (from [facility] [place]): [place] Assessment/Plan Chief Complaint/Hosp Course Assessment and plan 1. suspect Bilateral pneumonia. improved. off abx 2. Bilateral pleural effusion. s/p thoracentesis. Sliver Machine Operator follow. plan for CT chest 3. Sepsis secondary to #1. Afebrile at present. Continue antibiotics and antipyretics as needed 4. History of left breast cancer status post radical mastectomy and chemotherapy. Patient does report he follows up with oncologist Dr. Camacho as outpatient and is currently on chemotherapy. Patient be followed up as outpatient 5. Leukopenia and thrombycytopenia likely chemotherapy-induced. Stable at present we'll monitor Disposition and plan: plan for CT chest follow up with pulmonary recs. d/c when medically stable and cleared by consultants Discussed but of care with Dr. Pro Problems: Subjective 24 Hr Interval Summary Free Text/Dictation better breathing at this time. no s/s of distress Exam/Review of Systems Vital Signs Vitals Vital Signs Date Time Temp Pulse Resp B/P Pulse Ox O2 Delivery O2 Flow Rate FiO2 05/13/16 16:05 92 05/13/16 11:51 98.0 17 102/55 98 05/13/16 09:25 Nasal Cannula 3.0 05/10/16 00:39 21 Intake and Output 05/12/16 05/12/16 05/13/16 15:00 23:00 07:00 Intake Total 1040 ml 100 ml Output Total 0 ml Balance 1040 ml 100 ml Exam General: Comfortable at this time. No apparent distress Eyes: pupils equal round, Anicteric sclera Neck: Supple nontender, no JVD Cardiac: S1, S2 auscultated, regular rhythm and rate Pulmonary: No obvious wheezing or rhonchi GI: Abdomen soft nontender nondistended, bowel sounds active Extremities: No edema bilateral lower extremities Skin: Clean dry and intact Neurologic: Alert to person place and time and situation Results Result Diagram: 05/13/16 0645 05/13/16 0645 Results 24 hrs Laboratory Tests Test 05/13/16 06:45 Anion Gap 13 Basophils # 0.0 Basophils % 0.5 Blood Morphology Comment Blood Urea Nitrogen 6 L Calcium Level 7.7 L Carbon Dioxide Level 30 Chloride Level 98 Creatinine 0.46 Eosinophils # 0.5 Eosinophils % 10.7 H Glucose Level 95 Hematocrit 36.8 L Hemoglobin 12.3 Lymphocytes # 0.9 Lymphocytes % 19.9 Magnesium Level 1.8 Mean Corpuscular Hemoglobin 27.4 L Mean Corpuscular Hemoglobin Concent 33.5 Mean Corpuscular Volume 81.9 L Mean Platelet Volume 8.7 Monocytes # 0.5 Monocytes % 10.6 Neutrophils # 2.6 Neutrophils % 58.3 Nucleated Red Blood Cells # 0.0 Nucleated Red Blood Cells % 0.0 Phosphorus Level 3.8 Platelet Count 105 #L Potassium Level 3.1 L Red Blood Count 4.49 Red Cell Distribution Width 18.9 H Sodium Level 138 White Blood Count 4.5 #L Medications Medications Current Medications Lorazepam (Ativan) 0.5 mg Q6H PRN IV ANXIETY; Start 05/10/16 at 07:30 Ondansetron HCl (Zofran Inj) 4 mg Q6H PRN IV NAUSEA AND/OR VOMITING Last administered on 05/12/16 09:22; Admin Dose 4 MG; Start 05/10/16 at 07:30 Acetaminophen (Tylenol Tab) 650 mg Q6H PRN PO PAIN LEVEL 1-3 OR FEVER; Start at 07:30 Morphine Sulfate (morphine) 2 mg Q4H PRN IV PAIN LEVEL 7-10 Last administered on 05/12/16 09:22; Admin Dose 2 MG; Start 05/10/16 at 07:30 Amitriptyline HCl (Elavil) 50 mg QHS PO Last administered on 05/12/16 20:57; Admin Dose 50 MG; Start 05/10/16 at 21:00 AUTUMN VARELA May 13, 2016 16:18
--- NOTE | 2016-05-13 16:39 | RADRPT ---
PROCEDURE: CT CHEST WITHOUT CONTRAST CLINICAL INDICATION: Effusions TECHNIQUE: Volumetrically acquired images of the thorax obtained without intravenous contrast were reformatted in the axial, coronal, and sagittal planes. CTDI = 9.3 mGy; DLP = 381 mGy-cm. One or m ore of the following dose reduction technique were used: Automatic exposure control, adjustment of t he mA and/or kV according to patient size, and use of iterative reconstruction technique. COMPARISON: Chest x-ray from 05/13/2016. FINDINGS: LOWER NECK AND CHEST WALL: There is a left mastectomy with left chest wall skin thickening and subcu taneous stranding. There is a right chest wall port catheter with the tip in the superior vena cava. AIRWAYS: The trachea and large airways are normal. Minimal bronchial wall thickening is seen. LUNGS: Dependent atelectasis is seen bilaterally. No definite suspicious nodules, masses, or consoli dation. PLEURA: Moderate bilateral pleural effusions are seen with associated. Moderate hydropneumothorax on the left is seen. MEDIASTINUM: No mediastinal mass. LYMPH NODES: No significant axillary, hilar, or mediastinal lymphadenopathy by CT size criteria. CARDIAC: The heart size is normal. No pericardial effusion or thickening. VASCULAR: The aorta and main pulmonary artery are normal in caliber. OSSEOUS: There is a geographic lucent lesion seen in the T10 vertebral body. Limited evaluation of the upper abdomen is unremarkable. IMPRESSION: 1. Moderate bilateral pleural effusions with associated atelectasis. A moderate hydropneumothorax o n the left is seen. 2. Status post left mastectomy with associated some skin thickening and subcutaneous stranding. Find ings may be related to cellulitis, radiation changes, or lymph edema. 3. Nonspecific lucent lesion seen in the T7 vertebral body. 4. Minimal bronchial wall thickening may be sequela of bronchitis, asthma, or other nonspecific airw ay inflammation. RPTAT:PP .Esdras Abdul MD, MD Date Time Electronically viewed and signed by .Esdras Abdul MD, MD on 05/13/2016 16:39 .V/
[2016-05-13] MEDS: AMITRIPTYLINE 25 MG TAB PO SCH (20:37)
[2016-05-14] VITALS (12 sets, daily range): BP systolic 101–120; BP diastolic 56–70; PULSE 79–108; RESP 16–20
[2016-05-14] MEDS: FUROSEMIDE 40 MG INJ IV SCH ×2 (06:27→18:16)
--- NOTE | 2016-05-14 15:59 | PN ---
Date/Time of Note Date/Time of Note DATE: 05/14/16 TIME: 15:57 Assessment/Plan VTE Prophylaxis VTE Prophylaxis Intervention: SCD's Lines/Catheters IV [facility]ter Type (from [facility]): No access Assessment/Plan Chief Complaint/Hosp Course Assessment and plan 1. suspect Bilateral pneumonia. improved. off abx 2. Bilateral pleural effusion. s/p thoracentesis. 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 Sepsis secondary to #1. Afebrile at present. Continue antibiotics and antipyretics as needed 4. History of left breast cancer status post radical mastectomy and chemotherapy. Patient does report he follows up with oncologist Dr. Camacho as outpatient and is currently on chemotherapy. Patient be followed up as outpatient 5. Leukopenia and thrombycytopenia likely chemotherapy-induced. Stable at present we'll monitor Disposition and plan: Follow-up CT scan of the chest x-ray moderate bilateral pleural effusions with associated atelectasis. There is also seen a moderate hydropneumothorax on the left. Follow-up with [facility]. Discharge him medically stable and cleared by consultants Discussed but of care with Dr. Pro Problems: Subjective 24 Hr Interval Summary Free Text/Dictation Social some shortness of breath reports feeling little fatigued Exam/Review of Systems Vital Signs Vitals Vital Signs Date Time Temp Pulse Resp B/P Pulse Ox O2 Delivery O2 Flow Rate FiO2 05/14/16 12:16 84 05/14/16 11:53 98.0 17 107/62 92 05/14/16 08:51 Nasal Cannula 2.0 Intake and Output 05/13/16 05/13/16 05/14/16 15:00 23:00 07:00 Intake Total 250 ml 720 ml Balance 250 ml 720 ml Exam General: Reports little fatigue. No apparent distress Eyes: pupils equal round, Anicteric sclera Neck: Supple nontender, no JVD Cardiac: S1, S2 auscultated, regular rhythm and rate Pulmonary: No obvious wheezing or rhonchi GI: Abdomen soft nontender nondistended, bowel sounds active Extremities: No edema bilateral lower extremities Skin: Clean dry and intact Neurologic: Alert to person place and time and situation Results Result Diagram: 05/13/16 0645 05/13/16 0645 Medications Medications Current Medications Lorazepam (Ativan) 0.5 mg Q6H PRN IV ANXIETY; Start 05/10/16 at 07:30 Ondansetron HCl (Zofran Inj) 4 mg Q6H PRN IV NAUSEA AND/OR VOMITING Last administered on 05/12/16 09:22; Admin Dose 4 MG; Start 05/10/16 at 07:30 Acetaminophen (Tylenol Tab) 650 mg Q6H PRN PO PAIN LEVEL 1-3 OR FEVER Last administered on 05/14/16 08:50; Admin Dose 650 MG; Start 05/10/16 at 07:30 Morphine Sulfate (morphine) 2 mg Q4H PRN IV PAIN LEVEL 7-10 Last administered on 05/12/16 09:22; Admin Dose 2 MG; Start 05/10/16 at 07:30 Amitriptyline HCl (Elavil) 50 mg QHS PO Last administered on 05/13/16 20:37; Admin Dose 50 MG; Start 05/10/16 at 21:00 AUTUMN VARELA May 14, 2016 15:59
[2016-05-14] MEDS ORDERED: POTASSIUM CHLORIDE (SR) 20 MEQ TAB PO STA (18:19)
--- NOTE | 2016-05-14 18:56 | CONS ---
Date/Time of Note Date/Time of Note DATE: 05/14/16 TIME: 18:52 Consult Date/Type/Reason Admit Date/Time May 10, 2016 at 02:56 Initial Consult Date Type of Consultation: Pulmonary Subjective CT reviewed; case d/w team. Objective Vital Signs Date Time Temp Pulse Resp B/P Pulse Ox O2 Delivery O2 Flow Rate FiO2 05/14/16 16:30 79 05/14/16 16:00 97.6 17 101/61 97 05/14/16 08:51 Nasal Cannula 2.0 Intake and Output 05/13/16 05/13/16 05/14/16 15:00 23:00 07:00 Intake Total 250 ml 720 ml Balance 250 ml 720 ml CARDIAC: S1, S2, no added sounds or murmurs. CHEST: Diminished air entry bilaterally. ABDOMEN: Soft, nontender. No guarding or rebound. EXTREMITIES: No cyanosis, clubbing, edema. NEUROLOGIC: Grossly intact. No focal deficits. Results/Medications Result Diagram: 05/13/1645 05/13/1645 Medications Current Medications Lorazepam (Ativan) 0.5 mg Q6H PRN IV ANXIETY; Start 05/10/16 at 07:30 Ondansetron HCl (Zofran Inj) 4 mg Q6H PRN IV NAUSEA AND/OR VOMITING Last administered on 05/12/16 09:22; Admin Dose 4 MG; Start 05/10/16 at 07:30 Acetaminophen (Tylenol Tab) 650 mg Q6H PRN PO PAIN LEVEL 1-3 OR FEVER Last administered on 05/14/16 08:50; Admin Dose 650 MG; Start 05/10/16 at 07:30 Morphine Sulfate (morphine) 2 mg Q4H PRN IV PAIN LEVEL 7-10 Last administered on 05/12/16 09:22; Admin Dose 2 MG; Start 05/10/16 at 07:30 Amitriptyline HCl (Elavil) 50 mg QHS PO Last administered on 05/13/16 20:37; Admin Dose 50 MG; Start 05/10/16 at 21:00 Assessment/Plan Additional Assessment/Plan IMPRESSION AND PLAN: 1. Left hydroPTX--s/p thoracentesis. Strongly suspect entrapped lung and a PTX ex-vacuo 2. Metastatic breast cancer RECS: 1. At this point, I would favor U/S or CT guided small-bore chest tube placement. If this is indeed a PTX ex-vacuo from lung entrapment we will know. 2. Send more fluid for cytology 3. Ultimately may require VATS BYRON ALONSO MD May 14, 2016 18:55
[2016-05-14] MEDS: AMITRIPTYLINE 25 MG TAB PO SCH (22:08)
[2016-05-15] VITALS (11 sets, daily range): BP systolic 101–114; BP diastolic 54–67; PULSE 90–109; RESP 17–19
[2016-05-15 05:26] LABS: POTASSIUM 3.4 mmol/L (3.5-5.1)
[2016-05-15 05:29] LABS: CALCIUM 8.3 mg/dl (8.4-10.2); CREATININE 0.42 mg/dl (0.44-1.00)
[2016-05-15 05:35] LABS: BASOPHILS % 0.5 % (0.0-2.0); EOSINOPHILS # 0.7 10^3/ul (0.0-0.5); EOSINOPHILS % 12.6 % (0.0-7.0); HEMATOCRIT 36.4 % (37.0-47.0); HEMOGLOBIN 12.1 g/dl (12.0-16.0); LYMPHOCYTES % 18.5 % (15.0-51.0); MEAN CORPUSCULAR HEMOGLOBIN 27.2 pg (29.0-33.0); MEAN CORPUSCULAR HGB CONC 33.2 g/dl (32.0-37.0); MEAN CORPUSCULAR VOLUME 82.1 fl (82.0-101.0); MEAN PLATELET VOLUME 7.4 fl (7.4-10.4); MONOCYTE # 0.5 10^3/ul (0.3-0.9); MONOCYTES % 9.7 % (0.0-11.0); NEUTROPHIL # 3.1 10^3/ul (1.6-7.5); NEUTROPHILS % 58.7 % (39.0-77.0); PLATELET COUNT 248 10^3/UL (140-440); RED BLOOD COUNT 4.43 10^6/ul (4.20-5.40); RED CELL DISTRIBUTION WIDTH 18.5 % (11.5-14.5); UNCORRECTED WBC 5.2 10^3/ul (4.8-10.8); WHITE BLOOD COUNT 5.2 10^3/ul (4.8-10.8)
[2016-05-15 06:12] LABS: CONDITION 1; LH ANALYZER COMMENTS 1
[2016-05-15] MEDS: FUROSEMIDE 40 MG INJ IV SCH ×2 (06:22→17:19)
[2016-05-15] MEDS: NACL 0.9% 3 ML SYG IV SCH (09:27)
[2016-05-15] MEDS: ONDANSETRON 4 MG INJ IV PRN (09:27)
--- NOTE | 2016-05-15 15:41 | PN ---
Date/Time of Note Date/Time of Note DATE: 05/15/16 TIME: 15:38 Assessment/Plan VTE Prophylaxis VTE Prophylaxis Intervention: SCD's Lines/Catheters IV [facility]ter Type (from [facility]): NOT ACCESS Assessment/Plan Chief Complaint/Hosp Course S- no events; dyspnea, about the same. no fever. O- vss PE no pallor/ jvd s1s2 reg; no m/r/g diminished bs bilat. bs+ nt nd, no r/r/g no edema A/P 1. Lt Pleural eff/ hydroptx; sp thoracentesis; stable, f/u on cultures. possible vats needed. 2. Ho Breast Ca 3. Pancytopenia (chemo induced?); improved. 4. Pneumonia? Problems: Exam/Review of Systems Vital Signs Vitals Vital Signs Date Time Temp Pulse Resp B/P Pulse Ox O2 Delivery O2 Flow Rate FiO2 05/15/16 12:05 100 05/15/16 11:39 98.1 18 101/56 97 05/15/16 07:43 Nasal Cannula 2.0 Intake and Output 05/14/16 05/14/16 05/15/16 15:00 23:00 07:00 Intake Total 1200 ml 200 ml Output Total 1000 ml Balance 200 ml 200 ml Results Result Diagram: 05/15/16 0440 05/15/16 0440 Results 24 hrs Laboratory Tests Test 05/15/16 04:40 Anion Gap 13 Basophils # 0.0 Basophils % 0.5 Blood Morphology Comment Blood Urea Nitrogen 6 L Calcium Level 8.3 L Carbon Dioxide Level 33 H Chloride Level 97 Creatinine 0.42 L Eosinophils # 0.7 H Eosinophils % 12.6 H Glucose Level 94 Hematocrit 36.4 L Hemoglobin 12.1 Lymphocytes # 1.0 Lymphocytes % 18.5 Mean Corpuscular Hemoglobin 27.2 L Mean Corpuscular Hemoglobin Concent 33.2 Mean Corpuscular Volume 82.1 Mean Platelet Volume 7.4 Monocytes # 0.5 Monocytes % 9.7 Neutrophils # 3.1 Neutrophils % 58.7 Nucleated Red Blood Cells # 0.0 Nucleated Red Blood Cells % 0.0 Platelet Count 248 # Potassium Level 3.4 L Red Blood Count 4.43 Red Cell Distribution Width 18.5 H Sodium Level 140 White Blood Count 5.2 Medications Medications Current Medications Lorazepam (Ativan) 0.5 mg Q6H PRN IV ANXIETY; Start 05/10/16 at 07:30 Ondansetron HCl (Zofran Inj) 4 mg Q6H PRN IV NAUSEA AND/OR VOMITING Last administered on 05/15/16 09:27; Admin Dose 4 MG; Start 05/10/16 at 07:30 Acetaminophen (Tylenol Tab) 650 mg Q6H PRN PO PAIN LEVEL 1-3 OR FEVER Last administered on 05/14/16 08:50; Admin Dose 650 MG; Start 05/10/16 at 07:30 Morphine Sulfate (morphine) 2 mg Q4H PRN IV PAIN LEVEL 7-10 Last administered on 05/12/16 09:22; Admin Dose 2 MG; Start 05/10/16 at 07:30 Amitriptyline HCl (Elavil) 50 mg QHS PO Last administered on 05/14/16 22:08; Admin Dose 50 MG; Start 05/10/16 at 21:00 YESICA PARKS MD May 15, 2016 15:41
[2016-05-15] MEDS ORDERED: ALBUTEROL 0.083% (NEB) 2.5 MG/3 ML AMP HHN PRN (16:00)
[2016-05-15] MEDS: POTASSIUM CHLORIDE 20 MEQ POWDER FOR ORAL SOLN PO SCH (17:15)
--- NOTE | 2016-05-15 17:59 | CONS ---
Date/Time of Note Date/Time of Note DATE: 05/15/16 TIME: 17:57 Consult Date/Type/Reason Admit Date/Time May 10, 2016 at 02:56 Type of Consultation: Pulmonary Subjective No events overnight. Objective Vital Signs Date Time Temp Pulse Resp B/P Pulse Ox O2 Delivery O2 Flow Rate FiO2 05/15/16 16:08 109 05/15/16 16:00 98.0 18 114/56 96 05/15/16 07:43 Nasal Cannula 2.0 Intake and Output 05/14/16 05/14/16 05/15/16 15:00 23:00 07:00 Intake Total 1200 ml 200 ml Output Total 1000 ml Balance 200 ml 200 ml CARDIAC: S1, S2, no added sounds or murmurs. CHEST: Diminished air entry bilaterally. ABDOMEN: Soft, nontender. No guarding or rebound. EXTREMITIES: No cyanosis, clubbing, edema. Results/Medications Result Diagram: 05/15/16 0440 05/15/16 0440 Results 24 hrs Laboratory Tests Test 05/15/16 04:40 Anion Gap 13 Basophils # 0.0 Basophils % 0.5 Blood Morphology Comment Blood Urea Nitrogen 6 L Calcium Level 8.3 L Carbon Dioxide Level 33 H Chloride Level 97 Creatinine 0.42 L Eosinophils # 0.7 H Eosinophils % 12.6 H Glucose Level 94 Hematocrit 36.4 L Hemoglobin 12.1 Lymphocytes # 1.0 Lymphocytes % 18.5 Mean Corpuscular Hemoglobin 27.2 L Mean Corpuscular Hemoglobin Concent 33.2 Mean Corpuscular Volume 82.1 Mean Platelet Volume 7.4 Monocytes # 0.5 Monocytes % 9.7 Neutrophils # 3.1 Neutrophils % 58.7 Nucleated Red Blood Cells # 0.0 Nucleated Red Blood Cells % 0.0 Platelet Count 248 # Potassium Level 3.4 L Red Blood Count 4.43 Red Cell Distribution Width 18.5 H Sodium Level 140 White Blood Count 5.2 Medications Current Medications Lorazepam (Ativan) 0.5 mg Q6H PRN IV ANXIETY; Start 05/10/16 at 07:30 Ondansetron HCl (Zofran Inj) 4 mg Q6H PRN IV NAUSEA AND/OR VOMITING Last administered on 05/15/16t 09:27; Admin Dose 4 MG; Start 05/10/16 at 07:30 Acetaminophen (Tylenol Tab) 650 mg Q6H PRN PO PAIN LEVEL 1-3 OR FEVER Last administered on 05/14/16 08:50; Admin Dose 650 MG; Start 05/10/16 at 07:30 Morphine Sulfate (morphine) 2 mg Q4H PRN IV PAIN LEVEL 7-10 Last administered on 05/12/16 09:22; Admin Dose 2 MG; Start 05/10/16 at 07:30 Amitriptyline HCl (Elavil) 50 mg QHS PO Last administered on 05/14/16 22:08; Admin Dose 50 MG; Start 05/10/16 at 21:00 Acetaminophen/ Hydrocodone Bitart ([place] (10/325)) 1 tab Q4H PRN PO PAIN; Start 05/15/16 at 16:00 Potassium Chloride (Potassium Chloride Pwd/Soln) 40 meq DAILY PO Last administered on 05/15/16 17:15; Admin Dose 40 MEQ; Start 05/15/16 at 16:00 Assessment/Plan Additional Assessment/Plan IMPRESSION: 1. Left hydroPTX--s/p thoracentesis. Strongly suspect entrapped lung with PTX ex-vacuo 2. Metastatic breast cancer RECS: 1. At this point, I would favor U/S or CT guided small-bore chest tube placement. If this is indeed a PTX ex-vacuo from lung entrapment we will know. 2. Send more fluid for cytology 3. Ultimately may require VATS 4. Will need to discuss with IR and Thoracic Surgery BYRON ALONSO MD May 15, 2016 17:59
[2016-05-15] MEDS: AMITRIPTYLINE 25 MG TAB PO SCH (21:23)
[2016-05-16] VITALS (12 sets, daily range): BP systolic 108–126; BP diastolic 59–77; PULSE 84–113; RESP 18–20
[2016-05-16] MEDS: FUROSEMIDE 40 MG INJ IV SCH ×2 (06:10→17:13)
[2016-05-16 07:01] LABS: BASOPHILS % 0.7 % (0.0-2.0); EOSINOPHILS # 0.6 10^3/ul (0.0-0.5); EOSINOPHILS % 12.8 % (0.0-7.0); HEMATOCRIT 36.5 % (37.0-47.0); HEMOGLOBIN 12.2 g/dl (12.0-16.0); LYMPHOCYTES # 0.9 10^3/ul (0.8-2.9); LYMPHOCYTES % 19.2 % (15.0-51.0); MEAN CORPUSCULAR HEMOGLOBIN 27.5 pg (29.0-33.0); MEAN CORPUSCULAR HGB CONC 33.5 g/dl (32.0-37.0); MEAN CORPUSCULAR VOLUME 82.1 fl (82.0-101.0); MEAN PLATELET VOLUME 7.2 fl (7.4-10.4); MONOCYTE # 0.5 10^3/ul (0.3-0.9); MONOCYTES % 11.1 % (0.0-11.0); NEUTROPHIL # 2.7 10^3/ul (1.6-7.5); NEUTROPHILS % 56.2 % (39.0-77.0); PLATELET COUNT 360 10^3/UL (140-440); RED BLOOD COUNT 4.45 10^6/ul (4.20-5.40); RED CELL DISTRIBUTION WIDTH 18.5 % (11.5-14.5); UNCORRECTED WBC 4.9 10^3/ul (4.8-10.8); WHITE BLOOD COUNT 4.9 10^3/ul (4.8-10.8)
[2016-05-16 07:06] LABS: CONDITION 1; LH ANALYZER COMMENTS 1
[2016-05-16 07:13] LABS: POTASSIUM 3.9 mmol/L (3.5-5.1)
[2016-05-16 07:16] LABS: CREATININE 0.49 mg/dl (0.44-1.00)
[2016-05-16 07:17] LABS: CALCIUM 8.6 mg/dl (8.4-10.2)
[2016-05-16 07:41] LABS: THYROID STIMULATING HORMONE 5.65 MIU/L (0.465-4.680)
[2016-05-16] MEDS: POTASSIUM CHLORIDE 20 MEQ POWDER FOR ORAL SOLN PO SCH (08:11)
--- NOTE | 2016-05-16 14:16 | CONS ---
Date/Time of Note Date/Time of Note DATE: 05/16/16 TIME: 14:11 Assessment/Plan Assessment/Plan Additional Assessment/Plan Assessment and recommendations; next 1. Patient admitted with white metastatic breast cancer with large bilateral pleural effusion. Status post left thoracentesis. 2. Left hydropneumothorax. Patient will need to have a VATS procedure done. Both the left and right-sided. Consultation Date/Type/Reason Admit Date/Time May 10, 2016 at 02:56 Type of Consultation: Pulmonary 24 HR Interval Summary Free Text/Dictation Patient condition is stable. Denies any significant shortness of breath. Denies any chest pain. Has any fever, chills. Next General examination; young lady, currently in no distress. Exam/Review of Systems Vital Signs Vitals Vital Signs Date Time Temp Pulse Resp B/P Pulse Ox O2 Delivery O2 Flow Rate FiO2 05/16/16 12:15 109 05/16/16 11:56 97.9 19 109/77 98 05/16/16 08:16 Nasal Cannula 05/15/16 19:54 2.0 Intake and Output 05/15/16 05/15/16 05/16/16 15:00 23:00 07:00 Intake Total 1200 ml 240 ml Output Total 900 ml Balance 300 ml 240 ml Exam HEENT examination; supple neck, no JVD. No lymphadenopathy. Pharynx is clear. Patient is alopecic Chest examination; diminished breath sounds in both lung bases. Lungs are fairly clear. S1-S2 audible, no murmurs. Abdomen examination; soft, nondistended. Nontender. Bowel sounds audible. Extremity examination; no peripheral edema. 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 Results Result Diagram: 05/16/16 0610 05/16/16 0610 Results 24 hrs Laboratory Tests Test 05/16/16 06:10 Anion Gap 13 Basophils # 0.0 Basophils % 0.7 Blood Morphology Comment Blood Urea Nitrogen 10 Calcium Level 8.6 Carbon Dioxide Level 34 H Chloride Level 98 Creatinine 0.49 Eosinophils # 0.6 H Eosinophils % 12.8 H Glucose Level 91 Hematocrit 36.5 L Hemoglobin 12.2 Hemoglobin A1c 5.8 Lymphocytes # 0.9 Lymphocytes % 19.2 Magnesium Level 2.0 Mean Corpuscular Hemoglobin 27.5 L Mean Corpuscular Hemoglobin Concent 33.5 Mean Corpuscular Volume 82.1 Mean Platelet Volume 7.2 L Monocytes # 0.5 Monocytes % 11.1 H Neutrophils # 2.7 Neutrophils % 56.2 Nucleated Red Blood Cells # 0.0 Nucleated Red Blood Cells % 0.0 Phosphorus Level 4.0 Platelet Count 360 # Potassium Level 3.9 Red Blood Count 4.45 Red Cell Distribution Width 18.5 H Sodium Level 141 Thyroid Stimulating Hormone (TSH) 5.650 H White Blood Count 4.9 Medications Medications Current Medications Lorazepam (Ativan) 0.5 mg Q6H PRN IV ANXIETY; Start 05/10/16 at 07:30 Ondansetron HCl (Zofran Inj) 4 mg Q6H PRN IV NAUSEA AND/OR VOMITING Last administered on 05/15/16 09:27; Admin Dose 4 MG; Start 05/10/16 at 07:30 Acetaminophen (Tylenol Tab) 650 mg Q6H PRN PO PAIN LEVEL 1-3 OR FEVER Last administered on 05/14/16 08:50; Admin Dose 650 MG; Start 05/10/16 at 07:30 Morphine Sulfate (morphine) 2 mg Q4H PRN IV PAIN LEVEL 7-10 Last administered on 05/12/16 09:22; Admin Dose 2 MG; Start 05/10/16 at 07:30 Amitriptyline HCl (Elavil) 50 mg QHS PO Last administered on 05/15/16 21:23; Admin Dose 50 MG; Start 05/10/16 at 21:00 Acetaminophen/ Hydrocodone Bitart ([place] (10/325)) 1 tab Q4H PRN PO PAIN; Start 05/15/16 at 16:00 Potassium Chloride (Potassium Chloride Pwd/Soln) 40 meq DAILY PO Last administered on 05/16/16 08:11; Admin Dose 40 MEQ; Start 05/15/16 at 16:00 LEI HORTA May 16, 2016 14:16
--- NOTE | 2016-05-16 15:55 | PN ---
Date/Time of Note Date/Time of Note DATE: 05/16/16 TIME: 15:53 Assessment/Plan VTE Prophylaxis VTE Prophylaxis Intervention: SCD's Lines/Catheters IV Catheter Type (from Nrs): No access Assessment/Plan Chief Complaint/Hosp Course A/P 1. Lt Pleural eff/ hydroptx; sp thoracentesis; stable, f/u on cultures. Pulmonology has been consulted, recommended chest tube placement versus VATS Follow-up pulmonology recommendations 2. Ho Breast Ca 3. Pancytopenia (chemo induced?); improved. 4. Pneumonia Continue antibiotics For DVT prophylaxis on SCD Problems: Subjective 24 Hr Interval Summary Free Text/Dictation Patient denies of any chest pain or shortness of breath Tolerating oral intake Has refused chest tube placement Exam/Review of Systems Vital Signs Vitals Vital Signs Date Time Temp Pulse Resp B/P Pulse Ox O2 Delivery O2 Flow Rate FiO2 05/16/16 12:15 109 05/16/16 11:56 97.9 19 109/77 98 05/16/16 08:16 Nasal Cannula 05/15/16 19:54 2.0 Intake and Output 05/15/16 05/15/16 05/16/16 15:00 23:00 07:00 Intake Total 1200 ml 240 ml Output Total 900 ml Balance 300 ml 240 ml Exam General: The patient is well-developed, Not in acute distress. HEENT: Atraumatic, normocephalic. The pupils are equal and round . Neck: Supple with full range of motion. Chest: Normal expansion of the thorax during inspiration Lungs: Decreased breath sounds bilateral lower lung field, left greater than right Heart: Normal S1-S2, Regular rhythm and rate. Abdomen: Soft , nontender, nondistended , bowel sounds are present. Extremities: Normal to inspection, no edema no cyanosis Neurologic: Normal mental status,The patient is awake, alert and oriented . Results Result Diagram: 05/16/16 0610 05/16/16 0610 Results 24 hrs Laboratory Tests Test 05/16/16 06:10 Anion Gap 13 Basophils # 0.0 Basophils % 0.7 Blood Morphology Comment Blood Urea Nitrogen 10 Calcium Level 8.6 Carbon Dioxide Level 34 H Chloride Level 98 Creatinine 0.49 Eosinophils # 0.6 H Eosinophils % 12.8 H Glucose Level 91 Hematocrit 36.5 L Hemoglobin 12.2 Hemoglobin A1c 5.8 Lymphocytes # 0.9 Lymphocytes % 19.2 Magnesium Level 2.0 Mean Corpuscular Hemoglobin 27.5 L Mean Corpuscular Hemoglobin Concent 33.5 Mean Corpuscular Volume 82.1 Mean Platelet Volume 7.2 L Monocytes # 0.5 Monocytes % 11.1 H Neutrophils # 2.7 Neutrophils % 56.2 Nucleated Red Blood Cells # 0.0 Nucleated Red Blood Cells % 0.0 Phosphorus Level 4.0 Platelet Count 360 # Potassium Level 3.9 Red Blood Count 4.45 Red Cell Distribution Width 18.5 H Sodium Level 141 Thyroid Stimulating Hormone (TSH) 5.650 H White Blood Count 4.9 Medications Medications Current Medications Lorazepam (Ativan) 0.5 mg Q6H PRN IV ANXIETY; Start 05/10/16 at 07:30 Ondansetron HCl (Zofran Inj) 4 mg Q6H PRN IV NAUSEA AND/OR VOMITING Last administered on 05/15/16 09:27; Admin Dose 4 MG; Start 05/10/16 at 07:30 Acetaminophen (Tylenol Tab) 650 mg Q6H PRN PO PAIN LEVEL 1-3 OR FEVER Last administered on 05/14/16 08:50; Admin Dose 650 MG; Start 05/10/16 at 07:30 Morphine Sulfate (morphine) 2 mg Q4H PRN IV PAIN LEVEL 7-10 Last administered on 05/12/16 09:22; Admin Dose 2 MG; Start 05/10/16 at 07:30 Amitriptyline HCl (Elavil) 50 mg QHS PO Last administered on 05/15/16 21:23; Admin Dose 50 MG; Start 05/10/16 at 21:00 Acetaminophen/ Hydrocodone Bitart ([place] (10/325)) 1 tab Q4H PRN PO PAIN; Start 05/15/16 at 16:00 Potassium Chloride (Potassium Chloride Pwd/Soln) 40 meq DAILY PO Last administered on 05/16/16 08:11; Admin Dose 40 MEQ; Start 05/15/16 at 16:00 ROSALIE LOPEZ MD May 16, 2016 15:55
[2016-05-16] MEDS: CEFTRIAXONE 1 GM/50 ML (PMX) 50 ML IVPB SCH (17:13)
--- NOTE | 2016-05-16 18:34 | CONS ---
DATE OF ADMISSION: 05/10/2016 DATE OF CONSULTATION: 05/16/2016 REASON FOR CONSULTATION: Pleural effusion. Thank you, ____for asking me to see this patient. HISTORY OF PRESENT ILLNESS: This is a 45-year-old female with a history of breast cancer admitted a fter radical mastectomy 2013. The patient has a history of chest wall abscess, [facility] and subsequently had a chest x-ray which showed mild to moderat e right and moderate left-sided pleural effusion with compressive atelectasis. She underwent a thor acentesis of the left side with 1.3 liters of fluid aspirated. The patient subsequently recurred th e effusion. Had a chest CT which showed moderate bilateral pleural effusion with associated atelect asis, moderate hydropneumothorax on the left side. The patient is currently on nasal cannula 2 lite rs. Saturation is 98%. PAST MEDICAL HISTORY: Significant for breast cancer. PAST SURGICAL HISTORY: Mastectomy. ALLERGIES: NONE. SOCIAL HISTORY: No smoking, drinking, no drug use. ALLERGIES: NONE. MEDICATIONS: Amitriptyline and Levaquin. PHYSICAL EXAMINATION VITAL SIGNS: Blood pressure is 120/66, pulse is 113, respirations 18, saturation is 98% on oxygen 2 liters, temperature is 97.8. HEENT: Normocephalic, atraumatic. NECK: Supple. No JVD, no carotid bruits. CARDIOVASCULAR: Regular rate and rhythm. CARDIOVASCULAR: Normal S1, S2. LUNGS: Have diminished breath sounds on the bases. ABDOMEN: Soft, nontender, nondistended. EXTREMITIES: Warm. LABORATORY VALUES: Significant for a hemoglobin of 12.2, white count 4.9, platelet count 560. INR 1.1. IMPRESSION: Bilateral pleural effusions, worse on the left than the right. Status post thoracentes is. RECOMMENDATIONS: Patient will need a video-assisted thoracic surgery and pleurodesis with decortica tion. Discussed with the patient. Will discuss with the referring physicians. Dictated By: CLARITA VALLADARES/NANO Conf#: [id number] DID#: [id number]
[2016-05-16] MEDS: AMITRIPTYLINE 25 MG TAB PO SCH (20:52)
[2016-05-17] VITALS (12 sets, daily range): BP systolic 104–124; BP diastolic 55–72; PULSE 92–113; RESP 15–20
[2016-05-17 07:27] LABS: POTASSIUM 3.9 mmol/L (3.5-5.1)
[2016-05-17 07:29] LABS: BASOPHILS % 0.5 % (0.0-2.0); EOSINOPHILS # 0.7 10^3/ul (0.0-0.5); EOSINOPHILS % 11.4 % (0.0-7.0); HEMATOCRIT 37.2 % (37.0-47.0); HEMOGLOBIN 12.3 g/dl (12.0-16.0); LYMPHOCYTES % 16.8 % (15.0-51.0); MEAN CORPUSCULAR HGB CONC 33.2 g/dl (32.0-37.0); MEAN CORPUSCULAR VOLUME 81.5 fl (82.0-101.0); MEAN PLATELET VOLUME 7.3 fl (7.4-10.4); MONOCYTE # 0.5 10^3/ul (0.3-0.9); MONOCYTES % 8.8 % (0.0-11.0); NEUTROPHIL # 3.7 10^3/ul (1.6-7.5); NEUTROPHILS % 62.5 % (39.0-77.0); PLATELET COUNT 390 10^3/UL (140-440); RED BLOOD COUNT 4.57 10^6/ul (4.20-5.40); RED CELL DISTRIBUTION WIDTH 18.3 % (11.5-14.5); UNCORRECTED WBC 5.9 10^3/ul (4.8-10.8); WHITE BLOOD COUNT 5.9 10^3/ul (4.8-10.8)
[2016-05-17 07:30] LABS: CREATININE 0.48 mg/dl (0.44-1.00)
[2016-05-17 07:31] LABS: CALCIUM 8.9 mg/dl (8.4-10.2)
[2016-05-17 07:45] LABS: CONDITION 1; LH ANALYZER COMMENTS 1
[2016-05-17] MEDS: FUROSEMIDE 40 MG INJ IV SCH ×2 (07:54→17:03)
[2016-05-17] MEDS: POTASSIUM CHLORIDE 20 MEQ POWDER FOR ORAL SOLN PO SCH (08:33)
--- NOTE | 2016-05-17 12:01 | RADRPT ---
PROCEDURE: XR Chest. CLINICAL INDICATION: Shortness of breath. TECHNIQUE: Single frontal view. COMPARISON: 05/13/2016. FINDINGS: The right internal jugular vein Port-A-Cath remains in satisfactory position. There is atelectasis at the lung bases, unchanged. Moderate bilateral pleural effusions are unchanged. The heart size is normal. There is no right pneumothorax. There is a left pneumothorax, worse than seen previously measuring approximately 50%. IMPRESSION: 1. Left pneumothorax measuring approximately 50%, worse than seen previously. 2. No other change from 05/13/2016. RPTAT: QQ .Marcus Adan MD, MD Date Time Electronically viewed and signed by .Marcus Adan MD, MD on 05/17/2016 12:01 .R/
--- NOTE | 2016-05-17 12:18 | CONS ---
Date/Time of Note Date/Time of Note DATE: 05/17/16 TIME: 12:15 Assessment/Plan Assessment/Plan Additional Assessment/Plan Assessment recommendations; next 1. Patient admitted with bilateral pleural effusions post left thoracentesis resulting in left hydropneumothorax. 2. Widely metastatic breast cancer. Next 3. Recurrent pleural effusions due to underlying malignancy. Patient has been seen by the thoracic surgeon, she will be scheduled for VATS procedure. Patient will need bilateral pleurodesis performed sequentially. Prognosis remains poor overall. Patient is refusing to have a left-sided chest tube placed. Consultation Date/Type/Reason Admit Date/Time May 10, 2016 at 02:56 Type of Consultation: Pulmonary 24 HR Interval Summary Free Text/Dictation Patient's condition stable. Denies any shortness of breath, chest pain, cough, hemoptysis or sputum production. General examination; young lady, currently in no distress. Exam/Review of Systems Vital Signs Vitals Vital Signs Date Time Temp Pulse Resp B/P Pulse Ox O2 Delivery O2 Flow Rate FiO2 05/17/16 09:32 111 05/17/16 04:00 98.2 15 108/55 99 05/16/16 23:37 21 05/16/16 08:16 Nasal Cannula 05/15/16 19:54 2.0 Intake and Output 05/16/16 05/16/16 05/17/16 15:00 23:00 07:00 Intake Total 2210 ml Balance 2210 ml Exam HEENT examination; supple neck, no JVD. No lymphadenopathy. Pharynx is clear. Patient is alopecic. Pupils are midsize and reactive to light bilaterally. No neck masses. Chest examination; diminished breath sounds lung bases bilaterally. Upper lobes are clear. S2 audible no murmurs regular rhythm. Abdomen examination; soft, no organomegaly. Nontender. Bowel sounds audible. Extremity examination; no peripheral edema. GRAVEL INSPECTOR examination; no focal deficit. Results Result Diagram: 05/17/16 0601 05/17/16 0601 Results 24 hrs Laboratory Tests Test 05/17/16 06:01 Anion Gap 15 Basophils # 0.0 Basophils % 0.5 Blood Morphology Comment Blood Urea Nitrogen 12 Calcium Level 8.9 Carbon Dioxide Level 30 Chloride Level 99 Creatinine 0.48 Eosinophils # 0.7 H Eosinophils % 11.4 H Free Thyroxine 1.03 Free Triiodothyronine (T3) pg/mL 4.33 Glucose Level 93 Hematocrit 37.2 Hemoglobin 12.3 Lymphocytes # 1.0 Lymphocytes % 16.8 Mean Corpuscular Hemoglobin 27.0 L Mean Corpuscular Hemoglobin Concent 33.2 Mean Corpuscular Volume 81.5 L Mean Platelet Volume 7.3 L Monocytes # 0.5 Monocytes % 8.8 Neutrophils # 3.7 Neutrophils % 62.5 Nucleated Red Blood Cells # 0.0 Nucleated Red Blood Cells % 0.0 Platelet Count 390 Potassium Level 3.9 Red Blood Count 4.57 Red Cell Distribution Width 18.3 H Sodium Level 140 White Blood Count 5.9 # Medications Medications Current Medications Lorazepam (Ativan) 0.5 mg Q6H PRN IV ANXIETY; Start 05/10/16 at 07:30 Ondansetron HCl (Zofran Inj) 4 mg Q6H PRN IV NAUSEA AND/OR VOMITING Last administered on 05/15/16 09:27; Admin Dose 4 MG; Start 05/10/16 at 07:30 Acetaminophen (Tylenol Tab) 650 mg Q6H PRN PO PAIN LEVEL 1-3 OR FEVER Last administered on 05/14/16 08:50; Admin Dose 650 MG; Start 05/10/16 at 07:30 Morphine Sulfate (morphine) 2 mg Q4H PRN IV PAIN LEVEL 7-10 Last administered on 05/12/16 09:22; Admin Dose 2 MG; Start 05/10/16 at 07:30 Amitriptyline HCl (Elavil) 50 mg QHS PO Last administered on 05/16/16 20:52; Admin Dose 50 MG; Start 05/10/16 at 21:00 Acetaminophen/ Hydrocodone Bitart ([place] (10/325)) 1 tab Q4H PRN PO PAIN; Start 05/15/16 at 16:00 Potassium Chloride 40 meq 40 meq DAILY PO Last administered on 05/17/16 08:33 ; Admin Dose 40 MEQ; Start 05/15/16 at 16:00 Ceftriaxone Sodium (Rocephin) 50 ml @ 100 mls/hr Q24H IVPB Last administered on 05/16/16 17:13; Admin Dose 100 MLS/HR; Start 05/16/16 at 16:30 LEI HORTA May 17, 2016 12:18
--- NOTE | 2016-05-17 14:49 | PN ---
Date/Time of Note Date/Time of Note DATE: 05/17/16 TIME: 14:48 Assessment/Plan VTE Prophylaxis VTE Prophylaxis Intervention: SCD's Lines/Catheters IV Catheter Type (from Nrs): NO ACCESS Assessment/Plan Chief Complaint/Hosp Course A/P 1. Lt Pleural eff/ hydroptx; sp thoracentesis; stable, f/u on cultures. Pulmonology has been consulted, recommended chest tube placement versus VATS Follow-up pulmonology recommendations 2. Left-sided pneumothorax: Program Trainer been consulted, patient has refused chest tube 3. Ho Breast Ca 4. Pancytopenia (chemo induced?); improved. 5. Pneumonia Continue antibiotics For DVT prophylaxis on SCD Problems: Subjective 24 Hr Interval Summary Free Text/Dictation Patient complains of having mild shortness of breath without any chest pain Tolerating oral intake Ambulating without any difficulty Exam/Review of Systems Vital Signs Vitals Vital Signs Date Time Temp Pulse Resp B/P Pulse Ox O2 Delivery O2 Flow Rate FiO2 05/17/16 13:26 94 05/17/16 12:00 98.1 20 111/65 96 Room Air 05/16/16 23:37 21 05/15/16 19:54 2.0 Intake and Output 05/16/16 05/16/16 05/17/16 15:00 23:00 07:00 Intake Total 2210 ml Balance 2210 ml Exam General: The patient is well-developed, Not in acute distress. HEENT: Atraumatic, normocephalic. The pupils are equal and round . Neck: Supple with full range of motion. Chest: Normal expansion of the thorax during inspiration Lungs: Decreased breath sounds left sided lung field, no rales or rhonchi Heart: Normal S1-S2, Regular rhythm and rate. Abdomen: Soft , nontender, nondistended , bowel sounds are present. Extremities: Normal to inspection, no edema no cyanosis Neurologic: Normal mental status,The patient is awake, alert and oriented . Results Result Diagram: 05/17/16 0605/17/16 06 Results 24 hrs Laboratory Tests Test 05/17/16 06:01 Anion Gap 15 Basophils # 0.0 Basophils % 0.5 Blood Morphology Comment Blood Urea Nitrogen 12 Calcium Level 8.9 Carbon Dioxide Level 30 Chloride Level 99 Creatinine 0.48 Eosinophils # 0.7 H Eosinophils % 11.4 H Free Thyroxine 1.03 Free Triiodothyronine (T3) pg/mL 4.33 Glucose Level 93 Hematocrit 37.2 Hemoglobin 12.3 Lymphocytes # 1.0 Lymphocytes % 16.8 Mean Corpuscular Hemoglobin 27.0 L Mean Corpuscular Hemoglobin Concent 33.2 Mean Corpuscular Volume 81.5 L Mean Platelet Volume 7.3 L Monocytes # 0.5 Monocytes % 8.8 Neutrophils # 3.7 Neutrophils % 62.5 Nucleated Red Blood Cells # 0.0 Nucleated Red Blood Cells % 0.0 Platelet Count 390 Potassium Level 3.9 Red Blood Count 4.57 Red Cell Distribution Width 18.3 H Sodium Level 140 White Blood Count 5.9 # Medications Medications Current Medications Lorazepam (Ativan) 0.5 mg Q6H PRN IV ANXIETY; Start 05/10/16 at 07:30 Ondansetron HCl (Zofran Inj) 4 mg Q6H PRN IV NAUSEA AND/OR VOMITING Last administered on 05/15/16 09:27; Admin Dose 4 MG; Start 05/10/16 at 07:30 Acetaminophen (Tylenol Tab) 650 mg Q6H PRN PO PAIN LEVEL 1-3 OR FEVER Last administered on 05/14/16 08:50; Admin Dose 650 MG; Start 05/10/16 at 07:30 Morphine Sulfate (morphine) 2 mg Q4H PRN IV PAIN LEVEL 7-10 Last administered on 05/12/16 09:22; Admin Dose 2 MG; Start 05/10/16 at 07:30 Amitriptyline HCl (Elavil) 50 mg QHS PO Last administered on 05/16/16 20:52; Admin Dose 50 MG; Start 05/10/16 at 21:00 Acetaminophen/ Hydrocodone Bitart ([place] (10325)) 1 tab Q4H PRN PO PAIN; Start 05/15/16 at 16:00 Potassium Chloride 40 meq 40 meq DAILY PO Last administered on 05/17/16 08:33 ; Admin Dose 40 MEQ; Start 05/15/16 at 16:00 Ceftriaxone Sodium (Rocephin) 50 ml @ 100 mls/hr Q24H IVPB Last administered on 05/16/16 17:13; Admin Dose 100 MLS/HR; Start 05/16/16 at 16:30 ROSALIE LOPEZ MD May 17, 2016 14:49
[2016-05-17] MEDS: CEFTRIAXONE 1 GM/50 ML (PMX) 50 ML IVPB SCH (17:03)
[2016-05-17] MEDS: AMITRIPTYLINE 25 MG TAB PO SCH (20:02)
[2016-05-18] VITALS (12 sets, daily range): BP systolic 104–130; BP diastolic 58–84; PULSE 88–118; RESP 15–20
[2016-05-18] MEDS: FUROSEMIDE 40 MG INJ IV SCH ×2 (05:00→18:13)
[2016-05-18 06:47] LABS: POTASSIUM 3.8 mmol/L (3.5-5.1)
[2016-05-18 06:49] LABS: CREATININE 0.52 mg/dl (0.44-1.00)
[2016-05-18 06:50] LABS: CALCIUM 9.1 mg/dl (8.4-10.2)
[2016-05-18 08:54] LABS: BASOPHILS % 0.8 % (0.0-2.0); EOSINOPHILS # 0.7 10^3/ul (0.0-0.5); EOSINOPHILS % 12.3 % (0.0-7.0); HEMATOCRIT 38.3 % (37.0-47.0); HEMOGLOBIN 12.6 g/dl (12.0-16.0); LYMPHOCYTES # 1.1 10^3/ul (0.8-2.9); LYMPHOCYTES % 19.1 % (15.0-51.0); MEAN CORPUSCULAR HGB CONC 32.9 g/dl (32.0-37.0); MEAN CORPUSCULAR VOLUME 82.1 fl (82.0-101.0); MEAN PLATELET VOLUME 7.4 fl (7.4-10.4); MONOCYTE # 0.5 10^3/ul (0.3-0.9); MONOCYTES % 9.4 % (0.0-11.0); NEUTROPHIL # 3.2 10^3/ul (1.6-7.5); NEUTROPHILS % 58.4 % (39.0-77.0); PLATELET COUNT 420 10^3/UL (140-440); RED BLOOD COUNT 4.67 10^6/ul (4.20-5.40); RED CELL DISTRIBUTION WIDTH 18.4 % (11.5-14.5); UNCORRECTED WBC 5.5 10^3/ul (4.8-10.8); WHITE BLOOD COUNT 5.5 10^3/ul (4.8-10.8)
[2016-05-18 09:03] LABS: CONDITION 1; LH ANALYZER COMMENTS 1
[2016-05-18] MEDS: POTASSIUM CHLORIDE 20 MEQ POWDER FOR ORAL SOLN PO SCH (09:07)
--- NOTE | 2016-05-18 16:28 | PN ---
Date/Time of Note Date/Time of Note DATE: 05/18/16 TIME: 16:25 Assessment/Plan VTE Prophylaxis VTE Prophylaxis Intervention: SCD's Lines/Catheters [facility] [place] Assessment/Plan Chief Complaint/Hosp Course A/P 1. Lt Pleural eff/ hydroptx; sp thoracentesis; stable, f/u on cultures. Pulmonology has been consulted, recommended chest tube placement versus VATS Follow-up pulmonology recommendations, plan for VATS this afternoon 2. Left-sided pneumothorax: Cone Operator been consulted, patient has refused chest tube 3. Ho Breast Ca 4. Pancytopenia (chemo induced?); improved. 5. Pneumonia Continue antibiotics For DVT prophylaxis on SCD Problems: Subjective 24 Hr Interval Summary Free Text/Dictation Patient denies any chest pain or shortness of breath N.p.o. for upcoming procedure Exam/Review of Systems Vital Signs Vitals Vital Signs Date Time Temp Pulse Resp B/P Pulse Ox O2 Delivery O2 Flow Rate FiO2 05/18/16 13:20 99 05/18/16 12:00 98.3 18 104/67 97 Room Air 05/16/16 23:37 21 05/15/16 19:54 2.0 Intake and Output 05/17/16 05/17/16 05/18/16 15:00 23:00 07:00 Intake Total 800 ml Balance 800 ml Exam General: The patient is well-developed, Not in acute distress. HEENT: Atraumatic, normocephalic. The pupils are equal and round . Neck: Supple with full range of motion. Chest: Normal expansion of the thorax during inspiration Lungs: Decreased breath sounds in the left lung field, no rhonchi or rales Heart: Normal S1-S2, Regular rhythm and rate. Abdomen: Soft , nontender, nondistended , bowel sounds are present. Extremities: Normal to inspection, no edema no cyanosis Neurologic: Normal mental status,The patient is awake, alert and oriented . Results Result Diagram: 05/18/16 0540 05/18/16 0548 Results 24 hrs Laboratory Tests Test 05/18/16 05:40 05/18/16 05:48 Basophils # 0.0 Basophils % 0.8 Blood Morphology Comment Eosinophils # 0.7 H Eosinophils % 12.3 H Hematocrit 38.3 Hemoglobin 12.6 Lymphocytes # 1.1 Lymphocytes % 19.1 Mean Corpuscular Hemoglobin 27.0 L Mean Corpuscular Hemoglobin Concent 32.9 Mean Corpuscular Volume 82.1 Mean Platelet Volume 7.4 Monocytes # 0.5 Monocytes % 9.4 Neutrophils # 3.2 Neutrophils % 58.4 Nucleated Red Blood Cells # 0.0 Nucleated Red Blood Cells % 0.0 Platelet Count 420 Red Blood Count 4.67 Red Cell Distribution Width 18.4 H White Blood Count 5.5 Anion Gap 19 H Blood Urea Nitrogen 12 Calcium Level 9.1 Carbon Dioxide Level 27 Chloride Level 98 Creatinine 0.52 Glucose Level 101 Potassium Level 3.8 Sodium Level 140 Medications Medications Current Medications Lorazepam (Ativan) 0.5 mg Q6H PRN IV ANXIETY; Start 05/10/16 at 07:30 Ondansetron HCl (Zofran Inj) 4 mg Q6H PRN IV NAUSEA AND/OR VOMITING Last administered on 05/15/16 09:27; Admin Dose 4 MG; Start 05/10/16 at 07:30 Acetaminophen (Tylenol Tab) 650 mg Q6H PRN PO PAIN LEVEL 1-3 OR FEVER Last administered on 05/14/16 08:50; Admin Dose 650 MG; Start 05/10/16 at 07:30 Morphine Sulfate (morphine) 2 mg Q4H PRN IV PAIN LEVEL 7-10 Last administered on 05/12/16 09:22; Admin Dose 2 MG; Start 05/10/16 at 07:30 Amitriptyline HCl (Elavil) 50 mg QHS PO Last administered on 05/17/16 20:02; Admin Dose 50 MG; Start 05/10/16 at 21:00 Acetaminophen/ Hydrocodone Bitart ([place] (10/325)) 1 tab Q4H PRN PO PAIN; Start 05/15/16 at 16:00 Potassium Chloride 40 meq 40 meq DAILY PO Last administered on 05/18/16 09:07 ; Admin Dose 40 MEQ; Start 05/15/16 at 16:00 Ceftriaxone Sodium (Rocephin) 50 ml @ 100 mls/hr Q24H IVPB Last administered on 05/17/16 17:03; Admin Dose 100 MLS/HR; Start 05/16/16 at 16:30 ROSALIE LOPEZ MD May 18, 2016 16:28
[2016-05-18] MEDS: CEFTRIAXONE 1 GM/50 ML (PMX) 50 ML IVPB SCH (16:38)
[2016-05-18] MEDS: D5W-0.45 NACL + KCL 20 MEQ 1,000 ML IV SCH ×2 (16:38→23:02)
[2016-05-18] MEDS ORDERED: MINERAL OIL LIGHT 10 ML VIAL ONE (18:20)
[2016-05-18] MEDS ORDERED: PROPOFOL 20 ML ONE (19:58)
[2016-05-18] MEDS ORDERED: MIDAZOLAM 1 MG/ML 2 ML INJ ONE (19:58)
[2016-05-18] MEDS: AMITRIPTYLINE 25 MG TAB PO SCH (21:00)
--- NOTE | 2016-05-18 21:41 | OPPN ---
Date/Time of Note Date/Time of Note DATE: 05/18/16 TIME: 21:40 Operative/Procedure Note Pre-Operative Diagnosis Left pleural effusion Post-Operative Diagnosis same Procedure Left VATS pleurodesis Surgeon: CLARITA BLISS MD Implants/Grafts: Not applicable Estimated blood loss: minimal Drains CT Specimens: Not Applicable Complications: None Anesthesia type: general CLARITA BLISS MD May 18, 2016 21:41
--- NOTE | 2016-05-18 22:00 | OPR ---
DATE OF OPERATION: PREOPERATIVE DIAGNOSIS: Left pleural effusion. POSTOPERATIVE DIAGNOSIS: Left pleural effusion. PROCEDURES: 1. Left video-assisted thoracic surgery, total pulmonary decortication. 2. Left pleurodesis. 3. Bronchoscopy. SURGEON: Clarita Cunningham MD ANESTHESIA: General. ESTIMATED BLOOD LOSS: 10 mL INFORMED CONSENT: Risks, benefits, complications, alternative therapies, high-risk nature of the op eration fully explained to the patient and the family, consent obtained. OPERATIVE TECHNIQUE: The patient was placed in supine position, prepped and draped in usual sterile fashion. Time-out was called, and I started. Bronchoscopy was done. No evidence of any endobronchial lesions was noted. The patient was placed in right lateral decubitus position, left side up. I made a 1 cm incision mid axillary line, 8th in tercostal space. Incision was taken down to subcutaneous tissue which was then opened using electro cautery. A 12 mm trocar was advanced into the pleural cavity. Thoracoscopy was done. Large amount of adhesions were noted. Two additional 5 mm incisions were made in anterior chest and inferior to the tip of the scapula. ____-port video-assisted thoracoscopy was performed. Adhesions were taken down. The lung was decorticated. Pleurodesis was achieved with electrocautery, argon beam coagula tion and application of 2 sprays of talc. A 24-[place] drain was placed into the pleural cavit y, brought out through a lower stab wound, secured to skin using silk sutures. The other 2 incision s were closed using a single 3-0 Vicryl suture in interrupted fashion. The patient tolerated proced ure well. Dictated By: CLARITA VALLADARES/NANO Conf#: [id number] DID#: [id number]
[2016-05-18] MEDS ORDERED: MEPERIDINE 25 MG INJ IV PRN (22:30)
[2016-05-18] MEDS ORDERED: hydrALAzine 20 MG INJ IV PRN (22:30)
[2016-05-18] MEDS ORDERED: FENTAnyl 50 MCG/ML VIAL IV PRN ×3 (22:30)
[2016-05-18] MEDS ORDERED: LABETALOL HCL 20MG INJ IV PRN (22:30)
[2016-05-18] MEDS ORDERED: HYDROmorphONE 1 MG/ML SYG IV PRN ×3 (22:30)
[2016-05-18] MEDS ORDERED: ONDANSETRON 4 MG INJ IV PRN (22:30)
[2016-05-18] MEDS: morphine 2 MG INJ IV PRN (22:31)
[2016-05-19] VITALS (30 sets, daily range): BP systolic 77–135; BP diastolic 57–114; PULSE 83–141; RESP 12–38
[2016-05-19 05:08] LABS: BASOPHILS % 0.1 % (0.0-2.0); EOSINOPHILS # 0.2 10^3/ul (0.0-0.5); HEMATOCRIT 44.5 % (37.0-47.0); HEMOGLOBIN 14.3 g/dl (12.0-16.0); LYMPHOCYTES # 0.6 10^3/ul (0.8-2.9); LYMPHOCYTES % 3.8 % (15.0-51.0); MEAN CORPUSCULAR HEMOGLOBIN 26.5 pg (29.0-33.0); MEAN CORPUSCULAR VOLUME 82.6 fl (82.0-101.0); MEAN PLATELET VOLUME 7.6 fl (7.4-10.4); MONOCYTE # 0.7 10^3/ul (0.3-0.9); MONOCYTES % 4.8 % (0.0-11.0); NEUTROPHIL # 14.1 10^3/ul (1.6-7.5); NEUTROPHILS % 90.3 % (39.0-77.0); PLATELET COUNT 491 10^3/UL (140-440); RED BLOOD COUNT 5.39 10^6/ul (4.20-5.40); RED CELL DISTRIBUTION WIDTH 18.1 % (11.5-14.5); UNCORRECTED WBC 15.6 10^3/ul (4.8-10.8); WHITE BLOOD COUNT 15.6 10^3/ul (4.8-10.8)
[2016-05-19 05:09] LABS: CONDITION 1; LH ANALYZER COMMENTS 1
[2016-05-19 05:11] LABS: POTASSIUM 4.2 mmol/L (3.5-5.1)
[2016-05-19 05:14] LABS: CREATININE 0.53 mg/dl (0.44-1.00)
[2016-05-19 05:15] LABS: CALCIUM 8.6 mg/dl (8.4-10.2)
[2016-05-19] MEDS: FUROSEMIDE 40 MG INJ IV SCH ×2 (06:50→19:01)
[2016-05-19] MEDS: morphine 2 MG INJ IV PRN ×2 (07:44→20:18)
[2016-05-19] MEDS: POTASSIUM CHLORIDE 20 MEQ POWDER FOR ORAL SOLN PO SCH (09:27)
--- NOTE | 2016-05-19 10:27 | PN ---
Date/Time of Note Date/Time of Note DATE: 05/19/16 TIME: 10:22 Assessment/Plan VTE Prophylaxis VTE Prophylaxis Intervention: SCD's Lines/Catheters IV Catheter Type (from [facility]): Peripheral IV Assessment/Plan Chief Complaint/Hosp Course A/P 1. Lt Pleural eff/ hydroptx; sp thoracentesis; stable, f/u on cultures. Pulmonology has been consulted, Status post left video-assisted thoracic surgery, total pulmonary decortication and Left pleurodesis. On 05/18/2016 Continue postsurgical care, chest tube in place 2. Left-sided pneumothorax: Plant Anatomist been consulted, status post chest tube 3. Ho Breast Ca, scheduled to follow up with oncology as outpatient 4. Pancytopenia (chemo induced?); improved. 5. Pneumonia Continue antibiotics For DVT prophylaxis on SCD Problems: Subjective 24 Hr Interval Summary Free Text/Dictation Postop day #1 Status post VATS on 05 18 2016 Minimal left axillary discomfort Denies of any chest pain or shortness of breath N.p.o. awaiting for swallow eval Exam/Review of Systems Vital Signs Vitals Vital Signs Date Time Temp Pulse Resp B/P Pulse Ox O2 Delivery O2 Flow Rate FiO2 05/19/16 10:00 126 38 77/60 97 Nasal Cannula 05/19/16 08:00 2.0 05/19/16 08:00 97.8 05/16/16 23:37 21 Intake and Output 05/18/16 05/18/16 05/19/16 15:00 23:00 07:00 Intake Total 400 ml 490 ml Output Total 294 ml 210 ml Balance 106 ml 280 ml Exam General: The patient is well-developed, Not in acute distress. HEENT: Atraumatic, normocephalic. The pupils are equal and round . Neck: Supple with full range of motion. Chest: Normal expansion of the thorax during inspiration, chest tube in the left axillary region Lungs: Shallow breathing secondary to thoracic pain due to postoperatively, clear to auscultation bilaterally Heart: Normal S1-S2, Regular rhythm and rate. Abdomen: Soft , nontender, nondistended , bowel sounds are present. Extremities: Normal to inspection, no edema no cyanosis Neurologic: Normal mental status,The patient is awake, alert and oriented . Results Result Diagram: 05/19/16 0345 05/19/16 0344 Results 24 hrs Laboratory Tests Test 2/23/17 03:45 Anion Gap 15 Basophils # 0.0 Basophils % 0.1 Blood Morphology Comment Blood Urea Nitrogen 15 Calcium Level 8.6 Carbon Dioxide Level 28 Chloride Level 102 Creatinine 0.53 Eosinophils # 0.2 Eosinophils % 1.0 Glucose Level 134 Hematocrit 44.5 Hemoglobin 14.3 Lymphocytes # 0.6 L Lymphocytes % 3.8 L Mean Corpuscular Hemoglobin 26.5 L Mean Corpuscular Hemoglobin Concent 32.0 Mean Corpuscular Volume 82.6 Mean Platelet Volume 7.6 Monocytes # 0.7 Monocytes % 4.8 Neutrophils # 14.1 H Neutrophils % 90.3 H Nucleated Red Blood Cells # 0.0 Nucleated Red Blood Cells % 0.0 Platelet Count 491 H Potassium Level 4.2 Red Blood Count 5.39 Red Cell Distribution Width 18.1 H Sodium Level 141 White Blood Count 15.6 #H Medications Medications Current Medications Lorazepam (Ativan) 0.5 mg Q6H PRN IV ANXIETY; Start 05/10/16 at 07:30 Ondansetron HCl (Zofran Inj) 4 mg Q6H PRN IV NAUSEA AND/OR VOMITING Last administered on 05/15/16 09:27; Admin Dose 4 MG; Start 05/10/16 at 07:30 Acetaminophen (Tylenol Tab) 650 mg Q6H PRN PO PAIN LEVEL 1-3 OR FEVER Last administered on 05/14/16 08:50; Admin Dose 650 MG; Start 05/10/16 at 07:30 Morphine Sulfate (morphine) 2 mg Q4H PRN IV PAIN LEVEL 7-10 Last administered on 05/19/16 07:44; Admin Dose 2 MG; Start 05/10/16 at 07:30 Amitriptyline HCl (Elavil) 50 mg QHS PO Last administered on 05/17/16 20:02; Admin Dose 50 MG; Start 05/10/16 at 21:00 Acetaminophen/ Hydrocodone Bitart ([place] (10/325)) 1 tab Q4H PRN PO PAIN; Start 05/15/16 at 16:00 Potassium Chloride 40 meq 40 meq DAILY PO Last administered on 05/19/16 09:27 ; Admin Dose 40 MEQ; Start 05/15/16 at 16:00 Ceftriaxone Sodium 50 ml @ 100 mls/hr Q24H IVPB Last administered on 16:38; Admin Dose 100 MLS/HR; Start 05/16/16 at 16:30 Potassium Chloride/Dextrose/ Sod Cl (D5-1/2ns + KCl 20 Meq) 1,000 ml @ 100 mls/ hr Q10H IV Last administered on 05/18/16 23:02; Admin Dose 70 MLS/HR; Start at 16:30 Metoprolol Tartrate (Lopressor) 12.5 mg BID PO ; Start 05/19/16 at 21:00; Status UNV ROSALIE LOPEZ MD May 19, 2016 10:27
[2016-05-19] MEDS: METOPROLOL 25 MG TAB PO SCH ×2 (10:39→20:17)
--- NOTE | 2016-05-19 10:55 | PN ---
Date/Time of Note Date/Time of Note DATE: 05/19/16 TIME: 10:53 Assessment/Plan Lines/Catheters IV Catheter Type (from Nrs): Peripheral IV Assessment/Plan Chief Complaint/Hosp Course SP VATS pleurodesis will DC a line check CXR Problems: Subjective 24 Hr Interval Summary Constitutional: improved Pain Control: mild Exam/Review of Systems Vital Signs Vitals Vital Signs Date Time Temp Pulse Resp B/P Pulse Ox O2 Delivery O2 Flow Rate FiO2 05/19/16 10:00 126 38 77/60 97 Nasal Cannula 05/19/16 08:00 2.0 05/19/16 08:00 97.8 05/16/16 23:37 21 Intake and Output 05/18/16 05/18/16 05/19/16 15:00 23:00 07:00 Intake Total 400 ml 490 ml Output Total 294 ml 210 ml Balance 106 ml 280 ml Exam ENMT: mucosa pink and moist, nl external ears & nose, nl lips & teeth, nl nasal mucosa & septum Neck: non-tender, supple Respiratory: clear to auscultation, normal air movement Cardiovascular: nl pulses, regular rate and rhythm Results Result Diagram: 05/19/165 05/19/16 0345 CLARITA BLISS MD May 19, 2016 10:55
--- NOTE | 2016-05-19 11:08 | RADRPT ---
PROCEDURE: Chest Radiograph. CLINICAL INDICATION: Pneumothorax. TECHNIQUE: Single frontal chest radiograph. COMPARISON: Chest radiograph 05/17/2016. CT chest 05/13/2016. FINDINGS: A right chest wall port infusion catheter remains in place. Previously seen left pneumothorax is no t appreciated on the current study. There is improved aeration of the left lung base, likely re-exp ansion of partially collapsed left lower lobe. There is a small to moderate right pleural effusion with adjacent atelectasis with apparent interval worsening.. IMPRESSION: 1. Left pneumothorax no longer appreciated. 2. Probable reexpansion of partially collapsed left lower lobe. 3. Worsening right pleural effusion with adjacent atelectasis/infiltrate. RPTAT: AA .Chuck Shaw MD, Date Time Electronically viewed and signed by .Chuck Shaw MD, on 05/19/2016 11:07 .B/
[2016-05-19] MEDS: CEFTRIAXONE 1 GM/50 ML (PMX) 50 ML IVPB SCH (16:36)
[2016-05-19] MEDS: D5W-0.45 NACL + KCL 20 MEQ 1,000 ML IV SCH (16:48)
[2016-05-19] MEDS: NACL 0.9% 3 ML SYG IV SCH (20:18)
[2016-05-19] MEDS: AMITRIPTYLINE 25 MG TAB PO SCH (21:18)
[2016-05-20] VITALS (12 sets, daily range): BP systolic 93–103; BP diastolic 51–65; PULSE 99–131; RESP 15–19
[2016-05-20] MEDS: D5W-0.45 NACL + KCL 20 MEQ 1,000 ML IV SCH ×4 (02:48→22:48)
[2016-05-20] MEDS: FUROSEMIDE 40 MG INJ IV SCH ×2 (06:08→18:19)
[2016-05-20 08:23] LABS: ADD SCAN DIFF NO
[2016-05-20 08:27] LABS: BASOPHILS % 0.1 % (0.0-2.0); HEMATOCRIT 39.7 % (37.0-47.0); HEMOGLOBIN 12.6 g/dl (12.0-16.0); LYMPHOCYTES # 0.7 10^3/ul (0.8-2.9); LYMPHOCYTES % 3.4 % (15.0-51.0); MEAN CORPUSCULAR HEMOGLOBIN 26.3 pg (29.0-33.0); MEAN CORPUSCULAR HGB CONC 31.7 g/dl (32.0-37.0); MEAN CORPUSCULAR VOLUME 82.7 fl (82.0-101.0); MONOCYTE # 1.3 10^3/ul (0.3-0.9); MONOCYTES % 6.3 % (0.0-11.0); NEUTROPHIL # 18.2 10^3/ul (1.6-7.5); NEUTROPHILS % 89.6 % (39.0-77.0); PLATELET COUNT 397 10^3/UL (140-415); RED CELL DISTRIBUTION WIDTH 17.1 % (11.5-14.5); WHITE BLOOD COUNT 20.3 10^3/ul (4.8-10.8)
[2016-05-20 08:53] LABS: POTASSIUM 4.8 mmol/L (3.5-5.1)
[2016-05-20 08:56] LABS: CREATININE 0.6 mg/dl (0.44-1.00)
[2016-05-20 08:57] LABS: CALCIUM 8.3 mg/dl (8.4-10.2); MAGNESIUM 1.9 mg/dl (1.7-2.5)
[2016-05-20] MEDS: METOPROLOL 25 MG TAB PO SCH ×2 (09:00→21:00)
[2016-05-20] MEDS: POTASSIUM CHLORIDE 20 MEQ POWDER FOR ORAL SOLN PO SCH (10:02)
--- NOTE | 2016-05-20 10:47 | PN ---
Date/Time of Note Date/Time of Note DATE: 05/20/16 TIME: 10:46 Assessment/Plan VTE Prophylaxis VTE Prophylaxis Intervention: SCD's Lines/Catheters IV [facility] Type [facility]from [facility]): Peripheral IV Assessment/Plan Chief Complaint/Hosp Course A/P 1. Lt Pleural eff/ hydroptx; sp thoracentesis; stable, f/u on cultures. Pulmonology has been consulted, Status post left video-assisted thoracic surgery, total pulmonary decortication and Left pleurodesis. On 05/18/2016 Continue postsurgical care, chest tube in place 2. Left-sided pneumothorax: Water Safety Teacher been consulted, status post chest tube 3. Ho Breast Ca, scheduled to follow up with oncology as outpatient 4. Pancytopenia (chemo induced?); improved. 5. Pneumonia Continue antibiotics For DVT prophylaxis on SCD Problems: Subjective 24 Hr Interval Summary Free Text/Dictation Patient denies of any chest pain or shortness of breath Minimal discomfort at the chest tube site No nausea vomiting diarrhea Was able to tolerate p.o. intake without any cough risk for aspiration Exam/Review of Systems Vital Signs Vitals Vital Signs Date Time Temp Pulse Resp B/P Pulse Ox O2 Delivery O2 Flow Rate FiO2 05/20/16 08:15 104 05/20/16 07:40 98.6 19 99/63 100 05/19/16 23:00 2.0 05/19/16 21:00 Nasal Cannula 05/16/16 23:37 21 Intake and Output 05/19/16 05/19/16 05/20/16 14:59 22:59 06:59 Intake Total 1050 ml 1300 ml Output Total 760 ml 70 ml 30 ml Balance -760 ml 980 ml 1270 ml Exam General: The patient is well-developed, Not in acute distress. HEENT: Atraumatic, normocephalic. The pupils are equal and round . Neck: Supple with full range of motion. Chest: Normal expansion of the thorax during inspiration, chest tube in place in the left axillary Lungs: Clear to auscultation bilaterally Heart: Normal S1-S2, Regular rhythm and rate. Abdomen: Soft , nontender, nondistended , bowel sounds are present. Extremities: Normal to inspection, no edema no cyanosis Neurologic: Normal mental status,The patient is awake, alert and oriented . Results Result Diagram: 05/20/16 0807 05/20/16 0807 Results 24 hrs Laboratory Tests Test 05/20/16 08:07 Anion Gap 13 Basophils # 0.0 Basophils % 0.1 Blood Urea Nitrogen 15 Calcium Level 8.3 L Carbon Dioxide Level 27 Chloride Level 100 Creatinine 0.60 Eosinophils # 0.0 Eosinophils % 0.0 Glucose Level 142 Hematocrit 39.7 Hemoglobin 12.6 Lymphocytes # 0.7 L Lymphocytes % 3.4 L Magnesium Level 1.9 Mean Corpuscular Hemoglobin 26.3 L Mean Corpuscular Hemoglobin Concent 31.7 L Mean Corpuscular Volume 82.7 Mean Platelet Volume 9.0 Monocytes # 1.3 H Monocytes % 6.3 Neutrophils # 18.2 H Neutrophils % 89.6 H Nucleated Red Blood Cells # 0.0 Nucleated Red Blood Cells % 0.0 Platelet Count 397 Potassium Level 4.8 Red Blood Count 4.80 Red Cell Distribution Width 17.1 H Sodium Level 135 White Blood Count 20.3 #H Medications Medications Current Medications Lorazepam (Ativan) 0.5 mg Q6H PRN IV ANXIETY; Start 05/10/16 at 07:30 Ondansetron HCl (Zofran Inj) 4 mg Q6H PRN IV NAUSEA AND/OR VOMITING Last administered on 05/15/16 09:27; Admin Dose 4 MG; Start 05/10/16 at 07:30 Acetaminophen (Tylenol Tab) 650 mg Q6H PRN PO PAIN LEVEL 1-3 OR FEVER Last administered on 05/14/16 08:50; Admin Dose 650 MG; Start 05/10/16 at 07:30 Morphine Sulfate (morphine) 2 mg Q4H PRN IV PAIN LEVEL 7-10 Last administered on 05/19/16 20:18; Admin Dose 2 MG; Start 05/10/16 at 07:30 Amitriptyline HCl (Elavil) 50 mg QHS PO Last administered on 05/19/16 21:18; Admin Dose 50 MG; Start 05/10/16 at 21:00 Acetaminophen/ Hydrocodone Bitart ([place] (10/325)) 1 tab Q4H PRN PO PAIN; Start 05/15/16 at 16:00 Potassium Chloride 40 meq 40 meq DAILY PO Last administered on 05/20/16 10:02 ; Admin Dose 40 MEQ; Start 05/15/16 at 16:00 Ceftriaxone Sodium 50 ml @ 100 mls/hr Q24H IVPB Last administered on 16:36; Admin Dose 100 MLS/HR; Start 05/16/16 at 16:30 Potassium Chloride/Dextrose/ Sod Cl (D5-1/2ns + KCl 20 Meq) 1,000 ml @ 100 mls/ hr Q10H IV Last administered on 05/20/16 06:08; Admin Dose 100 MLS/HR; Start 05/18/16 at 16:30 Metoprolol Tartrate (Lopressor) 12.5 mg BID PO Last administered on 05/19/16 20:17; Admin Dose 12.5 MG; Start 05/19/16 at 11:00 ROSALIE LOPEZ MD May 20, 2016 10:47
[2016-05-20] MEDS: LEVOFLOXACIN 500MG/D5W (PMX) 100 ML IVPB SCH (13:38)
--- NOTE | 2016-05-20 13:47 | PN ---
Date/Time of Note Date/Time of Note DATE: 05/20/16 TIME: 13:45 Assessment/Plan Lines/Catheters IV Catheter Type (from Nrs): Peripheral IV Assessment/Plan Chief Complaint/Hosp Course SP VATS pleurodesis CT 60 cc no PTX check CXR Problems: Subjective 24 Hr Interval Summary Constitutional: improved Pain Control: mild Exam/Review of Systems Vital Signs Vitals Vital Signs Date Time Temp Pulse Resp B/P Pulse Ox O2 Delivery O2 Flow Rate FiO2 05/20/16 12:35 98.1 103 19 103/59 97 05/19/16 23:00 2.0 05/19/16 21:00 Nasal Cannula 05/16/16 23:37 21 Intake and Output 05/19/16 05/19/16 05/20/16 15:00 23:00 07:00 Intake Total 1050 ml 1300 ml Output Total 760 ml 70 ml 30 ml Balance -760 ml 980 ml 1270 ml Exam Neck: non-tender, supple Respiratory: clear to auscultation, normal air movement Cardiovascular: nl pulses, regular rate and rhythm Gastrointestinal: nl liver, spleen, non-tender, soft Results Result Diagram: 05/20/16 0807 05/20/1607 MALECLARITA NUNN MD May 20, 2016 13:47
[2016-05-20] MEDS: HYDROCODONE/APAP (10/325) TAB PO PRN (15:49)
[2016-05-20] MEDS: CEFTRIAXONE 1 GM/50 ML (PMX) 50 ML IVPB SCH (18:21)
[2016-05-20] MEDS: AMITRIPTYLINE 25 MG TAB PO SCH (22:11)
[2016-05-21] VITALS (12 sets, daily range): BP systolic 96–140; BP diastolic 57–63; PULSE 89–105; RESP 15–20
[2016-05-21] MEDS: FUROSEMIDE 40 MG INJ IV SCH ×2 (06:40→17:26)
[2016-05-21] MEDS: D5W-0.45 NACL + KCL 20 MEQ 1,000 ML IV SCH (08:48)
[2016-05-21] MEDS: METOPROLOL 25 MG TAB PO SCH ×2 (09:00→20:44)
[2016-05-21] MEDS: POTASSIUM CHLORIDE 20 MEQ POWDER FOR ORAL SOLN PO SCH (09:07)
[2016-05-21 10:24] LABS: ADD SCAN DIFF NO
[2016-05-21 10:31] LABS: BASOPHILS % 0.2 % (0.0-2.0); EOSINOPHILS # 0.3 10^3/ul (0.0-0.5); HEMATOCRIT 34.8 % (37.0-47.0); HEMOGLOBIN 10.9 g/dl (12.0-16.0); LYMPHOCYTES # 0.7 10^3/ul (0.8-2.9); LYMPHOCYTES % 6.1 % (15.0-51.0); MEAN CORPUSCULAR HEMOGLOBIN 26.1 pg (29.0-33.0); MEAN CORPUSCULAR HGB CONC 31.3 g/dl (32.0-37.0); MEAN CORPUSCULAR VOLUME 83.3 fl (82.0-101.0); MONOCYTE # 0.8 10^3/ul (0.3-0.9); MONOCYTES % 7.4 % (0.0-11.0); NEUTROPHIL # 9.3 10^3/ul (1.6-7.5); NEUTROPHILS % 82.8 % (39.0-77.0); PLATELET COUNT 344 10^3/UL (140-415); RED BLOOD COUNT 4.18 10^6/ul (4.20-5.40); WHITE BLOOD COUNT 11.2 10^3/ul (4.8-10.8)
[2016-05-21 10:42] LABS: CREATININE 0.54 mg/dl (0.44-1.00)
[2016-05-21 10:43] LABS: CALCIUM 8.2 mg/dl (8.4-10.2)
[2016-05-21] MEDS: LEVOFLOXACIN 500MG/D5W (PMX) 100 ML IVPB SCH (12:34)
--- NOTE | 2016-05-21 12:49 | PN ---
Date/Time of Note Date/Time of Note DATE: 05/21/16 TIME: 12:49 Assessment/Plan Lines/Catheters IV Catheter Type (from Nrsg): Saline Lock Assessment/Plan Chief Complaint/Hosp Course SP VATS pleurodesis CT 200 cc no PTX continue Ct sxn Problems: Subjective 24 Hr Interval Summary Pain Control: mild Exam/Review of Systems Vital Signs Vitals Vital Signs Date Time Temp Pulse Resp B/P Pulse Ox O2 Delivery O2 Flow Rate FiO2 05/21/16 12:45 89 05/21/16 11:17 98.0 19 103/59 97 05/21/16 07:30 Nasal Cannula 2.0 Intake and Output 05/20/16 05/20/16 05/21/16 15:00 23:00 07:00 Intake Total 400 ml Balance 400 ml Exam Neck: non-tender, supple Respiratory: clear to auscultation, normal air movement Cardiovascular: No S3, No S4, No bruits, No diastolic murmur, No edema, No gallop, No irregular rhythm, No jugular venous distention (JVD), No murmurs/ extra sounds, No nl pulses, No other, No regular rate and rhythm, No rub, No systolic murmur Results Result Diagram: 05/21/16 1000 05/21/16 1000 CLARITA BLISS MD May 21, 2016 12:49
--- NOTE | 2016-05-21 14:07 | PN ---
Date/Time of Note Date/Time of Note DATE: 05/21/16 TIME: 14:06 Assessment/Plan VTE Prophylaxis VTE Prophylaxis Intervention: SCD's Lines/Catheters IV [facility]ter Type (from [facility] Saline Lock Assessment/Plan Chief Complaint/Hosp Course A/P 1. Lt Pleural eff/ hydroptx; sp thoracentesis; stable, f/u on cultures. Pulmonology has been consulted, Status post left video-assisted thoracic surgery, total pulmonary decortication and Left pleurodesis. On 05/18/2016 Continue postsurgical care, chest tube in place 2. Left-sided pneumothorax: Petroleum Terminal Plant Operator been consulted, status post chest tube 3. Ho Breast Ca, scheduled to follow up with oncology as outpatient 4. Pancytopenia (chemo induced?); improved. 5. Pneumonia Continue antibiotics 6. Left upper extremity swelling, rule out DVT For DVT prophylaxis on SCD Problems: Subjective 24 Hr Interval Summary Free Text/Dictation Patient denies of any chest pain or shortness of breath Complains of having discomfort in left upper extremity with swelling Was able to ambulate and transfer to chair from bed Tolerating oral intake Exam/Review of Systems Vital Signs Vitals Vital Signs Date Time Temp Pulse Resp B/P Pulse Ox O2 Delivery O2 Flow Rate FiO2 05/21/16 12:45 89 05/21/16 11:17 98.0 19 103/59 97 05/21/16 07:30 Nasal Cannula 2.0 Intake and Output 05/20/16 05/20/16 05/21/16 15:00 23:00 07:00 Intake Total 400 ml Balance 400 ml Exam General: The patient is well-developed, Not in acute distress. HEENT: Atraumatic, normocephalic. The pupils are equal and round . Neck: Supple with full range of motion. Chest: Normal expansion of the thorax during inspiration, chest tube in place Lungs: Clear to auscultation bilaterally Heart: Normal S1-S2, Regular rhythm and rate. Abdomen: Soft , nontender, nondistended , bowel sounds are present. Extremities: Right upper extremity within normal limits, swelling of left upper extremity, no edema in lower extremity no cyanosis Neurologic: Normal mental status,The patient is awake, alert and oriented . Results Result Diagram: 05/21/16 1000 05/21/16 1000 Results 24 hrs Laboratory Tests Test 05/21/16 10:00 Anion Gap 14 Basophils # 0.0 Basophils % 0.2 Blood Urea Nitrogen 13 Calcium Level 8.2 L Carbon Dioxide Level 27 Chloride Level 97 Creatinine 0.54 Eosinophils # 0.3 Eosinophils % 3.0 Glucose Level 103 Hematocrit 34.8 L Hemoglobin 10.9 L Lymphocytes # 0.7 L Lymphocytes % 6.1 L Mean Corpuscular Hemoglobin 26.1 L Mean Corpuscular Hemoglobin Concent 31.3 L Mean Corpuscular Volume 83.3 Mean Platelet Volume 9.0 Monocytes # 0.8 Monocytes % 7.4 Neutrophils # 9.3 H Neutrophils % 82.8 H Nucleated Red Blood Cells # 0.0 Nucleated Red Blood Cells % 0.0 Platelet Count 344 Potassium Level 5.0 Red Blood Count 4.18 L Red Cell Distribution Width 17.0 H Sodium Level 133 L White Blood Count 11.2 #H Medications Medications Current Medications Lorazepam (Ativan) 0.5 mg Q6H PRN IV ANXIETY; Start 05/10/16 at 07:30 Ondansetron HCl (Zofran Inj) 4 mg Q6H PRN IV NAUSEA AND/OR VOMITING Last administered on 05/15/16 09:27; Admin Dose 4 MG; Start 05/10/16 at 07:30 Acetaminophen (Tylenol Tab) 650 mg Q6H PRN PO PAIN LEVEL 1-3 OR FEVER Last administered on 05/14/16 08:50; Admin Dose 650 MG; Start 05/10/16 at 07:30 Morphine Sulfate (morphine) 2 mg Q4H PRN IV PAIN LEVEL 7-10 Last administered on 05/19/16 20:18; Admin Dose 2 MG; Start 05/10/16 at 07:30 Amitriptyline HCl (Elavil) 50 mg QHS PO Last administered on 05/20/16 22:11; Admin Dose 50 MG; Start 05/10/16 at 21:00 Acetaminophen/ Hydrocodone Bitart ([place] (10/325)) 1 tab Q4H PRN PO PAIN Last administered on 05/20/16 15:49; Admin Dose 1 TAB; Start 05/15/16 at 16:00 Potassium Chloride 40 meq 40 meq DAILY PO Last administered on 05/21/16 09:07 ; Admin Dose 40 MEQ; Start 05/15/16 at 16:00 Ceftriaxone Sodium 50 ml @ 100 mls/hr Q24H IVPB Last administered on 18:21; Admin Dose 100 MLS/HR; Start 05/16/16 at 16:30 Potassium Chloride/Dextrose/ Sod Cl (D5-1/2ns + KCl 20 Meq) 1,000 ml @ 100 mls/ hr Q10H IV Last administered on 05/20/16 06:08; Admin Dose 100 MLS/HR; Start 05/18/16 at 16:30 Metoprolol Tartrate 12.5 mg 12.5 mg BID PO Last administered on 05/19/16 20:17 ; Admin Dose 12.5 MG; Start 05/19/16 at 11:00 Levofloxacin/ Dextrose (Levaquin 500mg/ D5W 100 ml (Pmx)) 100 ml @ 100 mls/hr Q24H IVPB Last administered on 05/21/16 12:34; Admin Dose 100 MLS/HR; Start at 12:00 ROSALIE LOPEZ MD May 21, 2016 14:07
--- NOTE | 2016-05-21 15:57 | RADRPT ---
PROCEDURE: US upper extremity Venous. CLINICAL INDICATION: Left arm swelling TECHNIQUE: Multiple sonographic images of the left upper extremity venous system was obtained util izing grayscale, color-flow, compressive sonography and doppler imaging with augmentation. The imag es were reviewed on a PACS workstation. COMPARISON: None. FINDINGS: There is normal compressibility and flow within the left internal jugular vein, subclavian vein, axi llary vein, brachial, basilic, cephalic, radial and ulnar veins. IMPRESSION: No sonographic evidence for venous thrombosis in the left upper extremity. Physician Portillo Date Time Electronically viewed and signed by Physician Portillo on 05/21/2016 15:56 ML/
[2016-05-21] MEDS: CEFTRIAXONE 1 GM/50 ML (PMX) 50 ML IVPB SCH (17:26)
[2016-05-21] MEDS: AMITRIPTYLINE 25 MG TAB PO SCH (20:38)
[2016-05-22] VITALS (12 sets, daily range): BP systolic 97–122; BP diastolic 56–61; PULSE 75–102; RESP 15–20
[2016-05-22] MEDS: HYDROCODONE/APAP (10/325) TAB PO PRN
[2016-05-22] MEDS: FUROSEMIDE 40 MG INJ IV SCH ×2 (06:00→18:00)
[2016-05-22] MEDS: POTASSIUM CHLORIDE 20 MEQ POWDER FOR ORAL SOLN PO SCH (09:00)
[2016-05-22] MEDS: METOPROLOL 25 MG TAB PO SCH ×2 (09:43→21:00)
[2016-05-22 10:19] LABS: ADD SCAN DIFF NO
[2016-05-22 10:28] LABS: BASOPHILS % 0.5 % (0.0-2.0); EOSINOPHILS # 0.5 10^3/ul (0.0-0.5); EOSINOPHILS % 8.2 % (0.0-7.0); HEMATOCRIT 33.7 % (37.0-47.0); HEMOGLOBIN 10.6 g/dl (12.0-16.0); LYMPHOCYTES # 0.6 10^3/ul (0.8-2.9); LYMPHOCYTES % 10.2 % (15.0-51.0); MEAN CORPUSCULAR HEMOGLOBIN 26.2 pg (29.0-33.0); MEAN CORPUSCULAR HGB CONC 31.5 g/dl (32.0-37.0); MEAN CORPUSCULAR VOLUME 83.2 fl (82.0-101.0); MEAN PLATELET VOLUME 9.4 fl (7.4-10.4); MONOCYTE # 0.6 10^3/ul (0.3-0.9); MONOCYTES % 9.4 % (0.0-11.0); NEUTROPHIL # 4.3 10^3/ul (1.6-7.5); NEUTROPHILS % 71.5 % (39.0-77.0); PLATELET COUNT 353 10^3/UL (140-415); RED BLOOD COUNT 4.05 10^6/ul (4.20-5.40)
[2016-05-22 10:39] LABS: POTASSIUM 3.8 mmol/L (3.5-5.1)
[2016-05-22 10:42] LABS: CREATININE 0.5 mg/dl (0.44-1.00)
[2016-05-22 10:43] LABS: CALCIUM 8.2 mg/dl (8.4-10.2)
--- NOTE | 2016-05-22 12:39 | PN ---
Date/Time of Note Date/Time of Note DATE: 05/22/16 TIME: 12:28 Assessment/Plan VTE Prophylaxis VTE Prophylaxis Intervention: SCD's Lines/Catheters IV C[facility]ter Type (from [facility]): Saline Lock Assessment/Plan Chief Complaint/Hosp Course A/P 1. Lt Pleural eff/ hydroptx; sp thoracentesis; stable, f/u on cultures. Pulmonology has been consulted, Status post left video-assisted thoracic surgery, total pulmonary decortication and Left pleurodesis. On 05/18/2016 Continue postsurgical care, status post chest tube which has been removed on 2. Left-sided pneumothorax: Sanding Machine Operator Or Tender been consulted, status post chest tube 3. Ho Breast Ca, scheduled to follow up with oncology as outpatient 4. Pancytopenia (chemo induced?); improved. 5. Pneumonia Continue antibiotics 6. Left upper extremity swelling, negative DVT on left upper extremity Doppler For DVT prophylaxis on SCD Plan to discharge home tomorrow 05/23/2016 with the follow up with property field inspector and CT surgeon as outpatient Patient is also scheduled to follow up with her rendering equipment tender oncologist as outpatient Problems: Subjective 24 Hr Interval Summary Free Text/Dictation Chest tube has been removed today on Patient denies of any chest pain or shortness of breath Tolerating oral intake Continues to complain of having left upper extremity discomfort, left upper extremity Doppler was negative for DVT Exam/Review of Systems Vital Signs Vitals Vital Signs Date Time Temp Pulse Resp B/P Pulse Ox O2 Delivery O2 Flow Rate FiO2 05/22/16 12:14 98.2 82 20 97/56 96 05/22/16 07:41 Nasal Cannula 2.0 Intake and Output 05/21/16 05/21/16 05/22/16 15:00 23:00 07:00 Intake Total 500 ml 320 ml Output Total 50 ml 50 ml Balance 450 ml 270 ml Exam General: The patient is well-developed, Not in acute distress. HEENT: Atraumatic, normocephalic. The pupils are equal and round . Neck: Supple with full range of motion. Chest: Normal expansion of the thorax during inspiration, left axillary chest tube has been removed, packed with dry dressing Lungs: Clear to auscultation bilaterally Heart: Normal S1-S2, Regular rhythm and rate. Abdomen: Soft , nontender, nondistended , bowel sounds are present. Extremities: Normal to inspection, no edema no cyanosis Neurologic: Normal mental status,The patient is awake, alert and oriented . Results Result Diagram: 05/22/16 0950 05/22/16 0950 Results 24 hrs Laboratory Tests Test 05/22/16 09:50 Anion Gap 13 Basophils # 0.0 Basophils % 0.5 Blood Urea Nitrogen 11 Calcium Level 8.2 L Carbon Dioxide Level 30 Chloride Level 95 L Creatinine 0.50 Eosinophils # 0.5 Eosinophils % 8.2 H Glucose Level 128 Hematocrit 33.7 L Hemoglobin 10.6 L Lymphocytes # 0.6 L Lymphocytes % 10.2 L Mean Corpuscular Hemoglobin 26.2 L Mean Corpuscular Hemoglobin Concent 31.5 L Mean Corpuscular Volume 83.2 Mean Platelet Volume 9.4 Monocytes # 0.6 Monocytes % 9.4 Neutrophils # 4.3 Neutrophils % 71.5 Nucleated Red Blood Cells # 0.0 Nucleated Red Blood Cells % 0.0 Platelet Count 353 Potassium Level 3.8 Red Blood Count 4.05 L Red Cell Distribution Width 17.0 H Sodium Level 134 L White Blood Count 6.0 # Medications Medications Current Medications Lorazepam (Ativan) 0.5 mg Q6H PRN IV ANXIETY; Start 05/10/16 at 07:30 Ondansetron HCl (Zofran Inj) 4 mg Q6H PRN IV NAUSEA AND/OR VOMITING Last administered on 05/15/16 09:27; Admin Dose 4 MG; Start 05/10/16 at 07:30 Acetaminophen (Tylenol Tab) 650 mg Q6H PRN PO PAIN LEVEL 1-3 OR FEVER Last administered on 05/14/16 08:50; Admin Dose 650 MG; Start 05/10/16 at 07:30 Morphine Sulfate (morphine) 2 mg Q4H PRN IV PAIN LEVEL 7-10 Last administered on 05/19/16 20:18; Admin Dose 2 MG; Start 05/10/16 at 07:30 Amitriptyline HCl (Elavil) 50 mg QHS PO Last administered on 05/21/16 20:38; Admin Dose 50 MG; Start 05/10/16 at 21:00 Acetaminophen/ Hydrocodone Bitart ([place] (10/325)) 1 tab Q4H PRN PO PAIN Last administered on 05/22/16 00:00; Admin Dose 1 TAB; Start 05/15/16 at 16:00 Potassium Chloride 40 meq 40 meq DAILY PO Last administered on 05/21/16 09:07 ; Admin Dose 40 MEQ; Start 05/15/16 at 16:00 Ceftriaxone Sodium (Rocephin) 50 ml @ 100 mls/hr Q24H IVPB Last administered on 05/21/16 17:26; Admin Dose 100 MLS/HR; Start 05/16/16 at 16:30 Metoprolol Tartrate 12.5 mg 12.5 mg BID PO Last administered on 05/22/16 09:43 ; Admin Dose 12.5 MG; Start 05/19/16 at 11:00 Levofloxacin/ Dextrose (Levaquin 500mg/ D5W 100 ml (Pmx)) 100 ml @ 100 mls/hr Q24H IVPB Last administered on 05/21/16 12:34; Admin Dose 100 MLS/HR; Start at 12:00 ROSALIE LOPEZ MD May 22, 2016 12:38
[2016-05-22] MEDS: LEVOFLOXACIN 500MG/D5W (PMX) 100 ML IVPB SCH (13:35)
[2016-05-22] MEDS: CEFTRIAXONE 1 GM/50 ML (PMX) 50 ML IVPB SCH (18:20)
[2016-05-22] MEDS: AMITRIPTYLINE 25 MG TAB PO SCH (21:18)
[2016-05-23] VITALS (11 sets, daily range): BP systolic 97–132; BP diastolic 58–73; PULSE 91–109; RESP 18–20
[2016-05-23] MEDS: FUROSEMIDE 40 MG INJ IV SCH (05:15)
[2016-05-23 05:59] LABS: ADD SCAN DIFF NO
[2016-05-23 06:13] LABS: BASOPHIL # 0.1 10^3/ul (0.0-0.1); BASOPHILS % 0.9 % (0.0-2.0); EOSINOPHILS # 0.5 10^3/ul (0.0-0.5); EOSINOPHILS % 8.7 % (0.0-7.0); HEMATOCRIT 36.3 % (37.0-47.0); HEMOGLOBIN 11.5 g/dl (12.0-16.0); LYMPHOCYTES # 0.9 10^3/ul (0.8-2.9); LYMPHOCYTES % 16.2 % (15.0-51.0); MEAN CORPUSCULAR HEMOGLOBIN 26.3 pg (29.0-33.0); MEAN CORPUSCULAR HGB CONC 31.7 g/dl (32.0-37.0); MEAN CORPUSCULAR VOLUME 83.1 fl (82.0-101.0); MONOCYTE # 0.6 10^3/ul (0.3-0.9); MONOCYTES % 10.8 % (0.0-11.0); NEUTROPHIL # 3.6 10^3/ul (1.6-7.5); PLATELET COUNT 420 10^3/UL (140-415); RED BLOOD COUNT 4.37 10^6/ul (4.20-5.40); RED CELL DISTRIBUTION WIDTH 16.5 % (11.5-14.5); WHITE BLOOD COUNT 5.6 10^3/ul (4.8-10.8)
[2016-05-23 06:34] LABS: CREATININE 0.48 mg/dl (0.44-1.00)
[2016-05-23 06:35] LABS: CALCIUM 8.7 mg/dl (8.4-10.2)
[2016-05-23] MEDS ORDERED: morphine SULFATE/PF (10 MG/10 ML) INJ ONE (07:31)
[2016-05-23] MEDS ORDERED: OXYTOCIN 10 UNIT INJ ONE (07:31)
[2016-05-23] MEDS ORDERED: METOCLOPRAMIDE 10 MG INJ ONE (07:31)
[2016-05-23] MEDS ORDERED: KETOROLAC 30 MG INJ ONE (07:31)
[2016-05-23] MEDS ORDERED: DEXAMETHASONE 4 MG/ML 1 ML INJ ONE (07:31)
[2016-05-23] MEDS ORDERED: PHENYLephrine (100 MCG/ML) 5ML SYG ONE (08:03)
[2016-05-23] MEDS: POTASSIUM CHLORIDE 20 MEQ POWDER FOR ORAL SOLN PO SCH (08:51)
[2016-05-23] MEDS: METOPROLOL 25 MG TAB PO SCH (08:52)
--- NOTE | 2016-05-23 11:27 | PDOCDIS ---
Discharge Instructions CONDITION Patient Condition: Fair HOME CARE INSTRUCTIONS: Special Diet: 2gm Na ACTIVITY: Activity Restrictions: Slowly Increase Activity Rest between Activity Avoid heavy lifting FOLLOW UP/APPOINTMENTS Appointments Follow up with pulmonary in one week Follow up with oncology as out-pt Follow up with Dr. ribera as out-pt ROSALIE LOPEZ MD May 23, 2016 11:27
[2016-05-23] MEDS ORDERED: CEPH500C PO (11:31)
[2016-05-23] MEDS ORDERED: METO-448 PO (11:31)
[2016-05-23] MEDS ORDERED: LEVO500T72 PO (11:31)
[2016-05-23] MEDS ORDERED: FURO-110 PO (11:31)
[2016-05-23] MEDS ORDERED: DOCU-144 PO (11:31)
[2016-05-23] MEDS ORDERED: METO5TAB2 PO (11:31)
[2016-05-23] MEDS ORDERED: ALBU8.5H3 INH (11:31)
[2016-05-23] MEDS ORDERED: HYDR-906 PO (11:31)
[2016-05-23] MEDS ORDERED: MEGE40TA PO (11:32)
[2016-05-23] MEDS: LEVOFLOXACIN 500MG/D5W (PMX) 100 ML IVPB SCH (12:45)
--- NOTE | 2016-05-23 23:40 | DS ---
DATE OF ADMISSION: 05/10/2016 DATE OF DISCHARGE: 05/23/2016 CONSULTANTS: 1. Dr. David Barnhart. 2. Dr. Sahil Cunningham PROCEDURES: Video-assisted thoracic surgery, total pulmonary decortication, left pleurodesis, and b ronchoscopy. DISCHARGE DIAGNOSES: 1. Left pleural effusion, status post left video-assisted thoracic surgery and total pulmonary deco rtication. The chest tube was removed on 05/22/2016. 2. Left-sided pneumothorax, status post thoracocentesis. 3. History of breast cancer. The patient is scheduled to follow oncology as outpatient. 4. Pancytopenia, likely secondary to chemotherapy, improved. 5. Pneumonia, status post IV antibiotics. 6. Left upper extremity swelling, negative for deep vein thrombosis in upper left extremity. 7. Malnutrition and decreased appetite. The patient has been started on Megace. MEDICATIONS: 1. Albuterol sulfate. 2. Keflex. 3. Colace. 4. Lasix. 5. Ramah. 6. Levaquin. 7. Megace. 8. Reglan. 9. Metoprolol. 10. Amitriptyline. ALLERGIES: NO KNOWN DRUG ALLERGIES. HOSPITAL COURSE: This is a very pleasant 45-year-old female with past medical history of breast car cinoma status post radical mastectomy in 2013 as well as chest wall abscess who presented to emergen cy department with shortness of breath and cough. The patient stated that the shortness of breath h as been getting progressively worse x3 weeks and was she placed on antibiotics, but the pain and everardo rtness of breath has been persistent. Therefore, presented to the emergency room. Upon arrival to ER, patient was found to have fever to 100.7, oxygen 92%. WBC 4.7. Chest x-ray demonstrated right- sided chest port, mild to moderate left pleural effusion with associated with compressive atelectasi s. The patient was set up for thoracocentesis, which showed initial ultrasound demonstrated fluid i n the left pleural space. Approximately 1.3 liters of serous fluid was aspirated and sent to [facility]. The patient was seen and evaluated by the material liaison and cardiothoracic surgeon. As p er their recommendations, the patient needed a chest tube versus a VATS. After further evaluation o f the patient, it was recommended the patient should proceed with VATS. After discussing the mode o f the treatment and the risks and the benefits of the VATS, patient did sign the consent. The patie nt was taken to OR for VATS and left pleurodesis and bronchoscopy. The patient tolerated the proced ure. Her chest tube was removed on 05/22/2016. This morning, patient denies having any chest pain, shortness of breath, nausea, vomiting, diarrhea. No headache, dizziness. The patient does complai n of having decrease in appetite, which she has been placed on Megace. Her blood pressure is well c ontrolled during this course of hospitalization. The patient is afebrile and will be discharged mckay e on oral antibiotics x5 days. CONDITION AT TIME OF DISCHARGE: Stable. FOLLOWUP: 1. Follow up with cardiothoracic surgeon as outpatient. 2. Follow up material liaison as outpatient. 3. Follow hematology/oncology as outpatient. Dictated By: ROSALIE LOPEZ MD PN/NTS Conf#: [id number] DID#: [id number] CC: DANIEL MICHAUD MD;*EndCC*
== END 2016-05-23 17:08 | disposition home or self-care (01) | DRG 163 ==
LOC: FTE 18:39 → MS4 05-10 02:56 → ICU 05-18 22:00 → TEL 05-19 17:54
PROVIDERS: ADMIT Internal Medicine; ATTEND Internal Medicine
PROC: 0W9B3ZX Drainage of Left Pleural Cavity, Percutaneous Approach, Diagnostic (ICD-10-PCS; principal; 2016-05-11)
PROC: 0BDP4ZZ Extraction of Left Pleura, Percutaneous Endoscopic Approach (ICD-10-PCS; 2016-05-18)
PROC: 0B5P4ZZ Destruction of Left Pleura, Percutaneous Endoscopic Approach (ICD-10-PCS; 2016-05-18)
PROC: 0BJ08ZZ Inspection of Tracheobronchial Tree, Via Natural or Artificial Opening Endoscopic (ICD-10-PCS; 2016-05-18)
PROC: 3E0L3GC Introduction of Other Therapeutic Substance into Pleural Cavity, Percutaneous Approach (ICD-10-PCS; 2016-05-18)
DX: J18.9 Pneumonia, unspecified organism (principal); J96.91 Respiratory failure, unspecified with hypoxia; D61.810 Antineoplastic chemotherapy induced pancytopenia; E46 Unspecified protein-calorie malnutrition; J94.8 Other specified pleural conditions; J95.811 Postprocedural pneumothorax; Z85.3 Personal history of malignant neoplasm of breast; Y84.4 Aspiration of fluid as the cause of abnormal reaction of the patient, or of later complication, without mention of misadventure at the time of the procedure; Y92.238 Other place in hospital as the place of occurrence of the external cause; Z68.25 Body mass index [BMI] 25.0-25.9, adult
CPT/HCPCS: 36415; 71010; 71250; 76942; 80048; 80053; 80202; 82306; 82945; 83036; 83605; 83615; 83735; 84100; 84157; 84439; 84443; 84481; 84484; 85025; 85610; 86850; 86900; 86901; 87040; 87070; 87102; 87116; 88104; 88305; 88313; 89050; 92610; 93005; 93971; 94644; 94664; 96374; 96375; 97116; 97162; 97530; J0692; J0696; J1100; J1170; J1644; J1885; J1940; J1956; J2250; J2270; J2274; J2370; J2405; J2590; J2765; J3010; J3370; J3480; J7040; J7050

== ENCOUNTER → 2016-08-15 | Outpatient (CLI) | payer OTHER ==
[~2016-08-15] MED LIST changes: +ALBU8.5H3 INH; +CEPH500C PO; +DOCU-144 PO; +FURO-110 PO; +HYDR-906 PO; +LEVO500T72 PO; -LEVO750T25 PO; +MEGE40TA PO; +METO-448 PO; +METO5TAB2 PO
--- NOTE | 2016-08-15 14:33 | RADRPT ---
Echocardiogram Report Patient Name: COOPER MAIN Gender: Female Date: 1970 Study Date: 15-Aug-2016 Kitchen Stewardess: Vj Grimm RDCS Location: EKG Ref. Physician: LOS VIVAR Quality: Adequate Procedures: Transthoracic echocardiogram with complete 2D, M-Mode, and doppler examination. Indications: Breast Cancer. 2D/M Mode Doppler Measurement Value Normal Ranges Measurement Value Normal Ranges LVIDd 2D 4.2 3.5 - 5.6 cm AV Peak Sushant 1.3 m/sec LVIDs 2D 2.7 2.1 - 4.1 cm AV Peak PG 6.6 mmHg LVPWd 2D 0.9 0.6 - 1.1 cm LVOT Peak Sushant 1.1 m/sec IVSd 2D 0.9 0.6 - 1.1 cm LVOT Peak PG 4.9 mmHg AoR Diam 2D 1.9 2.0 - 3.7 cm MV E Peak Sushant 0.8 m/sec EDV 2D 78.3 cm3 MV A Peak Sushant 0.7 m/sec ESV 2D 20.5 cm3 MV E/A 1.3 LA Dimen 2D 2.7 2.3 - 4.0 cm MV Decel Time 224 msec MV Decel Porter 4 MV E/A 1.3 Findings Left Ventricle: Normal left ventricular systolic function. Normal left ventricular cavity size. Normal left ventricular wall thickness. Ejection fraction is visually estimated at 60 %. Tissue Doppler/Mitral Doppler indices are within normal limits. Right Ventricle: Normal right ventricular size. Normal right ventricular systolic function. Left Atrium: The left atrium is normal in size. Right Atrium: The right atrium is normal in size. Mitral Valve: Normal appearance and function of the mitral valve with trace physiologic regurgitation. Aortic Valve: Normal appearance of the aortic valve. No significant aortic stenosis or insufficiency. Tricuspid Valve: Normal appearance of the tricuspid valve. Unable to obtain RVSP due to minimal presence of tricuspid regurgitation. Pulmonic Valve: Normal pulmonic valve appearance. Pericardium: Normal pericardium with no significant pericardial effusion. Aorta: Normal aortic root. IVC: Normal size and normal respiratory collapse consistent with normal right atrial pressure. Linear echo dense structure seen in IVC. Differential includes thrombus, tumor, artifact vs normal variant. Would recommend further imaging of IVC. Conclusions Normal left ventricular systolic function. Normal left ventricular cavity size. Normal left ventricular wall thickness. Ejection fraction is visually estimated at 60 %. Tissue Doppler/Mitral Doppler indices are within normal limits. Normal right ventricular size. Normal right ventricular systolic function. The left atrium is normal in size. The right atrium is normal in size. No significant valvular stenosis or regurgitation seen. Normal pericardium with no significant pericardial effusion. Normal size and normal respiratory collapse consistent with normal right atrial pressure. Linear echo dense structure seen in IVC. Differential includes thrombus, tumor, artifact vs normal variant. Would recommend further imaging of IVC. Findings discussed with Dr Los Vivar [phone] on 08/15/16 @ 2:30p. Electronically Signed By: Davin Gray 15-Aug-2016 14:32:19 -0700 Patient Name: COOPER MAIN Study Date: 15-Aug-2016 [id number]
== END | disposition home or self-care (01) ==
LOC: EKG 08:44
PROVIDERS: ATTEND Internal Medicine Hematology & Oncology
DX: C50.919 Malignant neoplasm of unspecified site of unspecified female breast (principal)
CPT/HCPCS: 93306

== ENCOUNTER → 2017-01-09 | Outpatient (CLI) | payer OTHER ==
[~2017-01-09] VITALS: Ht 170.2 cm; Wt 61.0 kg
[~2017-01-09] MED LIST changes: +ACETAMINOPHEN 325 MG TAB PO ONE; +CEFAZOLIN 1 GM INJ ONE; +FLUMAZENIL 0.5 MG INJ ONE; +LIDOCAINE 100 MG SYRINGE ONE; +METHYLPREDNISOLONE 125 MG INJ IV ONE; +OXYTOCIN 10 UNIT INJ ONE; +PROPOFOL 20 ML ONE; +SUGAMMADEX SODIUM 200 MG/2 ML VIAL IV ONE
[2017-01-11 10:15] VITALS: BP 130/69; PULSE 59; RESP 19; Ht 170.2 cm; Wt 61.0 kg
== END | disposition home or self-care (01) ==
LOC: LAB 17:00 → SDS 01-11 09:40
PROVIDERS: ATTEND Internal Medicine Hematology & Oncology
DX: C79.51 Secondary malignant neoplasm of bone (principal); Z85.3 Personal history of malignant neoplasm of breast
CPT/HCPCS: 36430; 86644; 86850; 86900; 86901; 86920; 86945; J2930; P9035

== ENCOUNTER 2017-03-01 08:50 | Day surgery (SDC) | payer OTHER ==
[~2017-03-01] VITALS: Ht 154.9 cm; Wt 62.3 kg
[~2017-03-01 08:50] MED LIST changes: -ACETAMINOPHEN 325 MG TAB PO ONE; -CEFAZOLIN 1 GM INJ ONE; -FLUMAZENIL 0.5 MG INJ ONE; -LIDOCAINE 100 MG SYRINGE ONE; -METHYLPREDNISOLONE 125 MG INJ IV ONE; -OXYTOCIN 10 UNIT INJ ONE; -PROPOFOL 20 ML ONE; -SUGAMMADEX SODIUM 200 MG/2 ML VIAL IV ONE
[2017-03-01 09:10] VITALS: BP 144/66; PULSE 67; RESP 16; Ht 154.9 cm; Wt 62.3 kg
[2017-03-01] MEDS ORDERED: ACETAMINOPHEN 325 MG TAB PO ONE (09:30)
[2017-03-01] MEDS ORDERED: METHYLPREDNISOLONE 125 MG INJ IV ONE (09:30)
== END 2017-03-01 14:29 | disposition home or self-care (01) ==
LOC: SDS 08:50
PROVIDERS: ATTEND Internal Medicine Hematology & Oncology
DX: D64.9 Anemia, unspecified (principal); Z85.3 Personal history of malignant neoplasm of breast
CPT/HCPCS: 36430; 86850; 86900; 86901; 86945; J2930; P9035; Z7610

== ENCOUNTER 2017-07-09 19:40 | Emergency (ER) | END 2017-07-10 00:20 | disposition home or self-care (01) ==

== ENCOUNTER 2018-01-19 20:16 | Emergency (ER) | END 2018-01-20 05:11 | disposition home or self-care (01) ==